=== PATIENT | female | born 1990 | race Caucasian/White ===

== ENCOUNTER 2016-06-06 22:40 | Inpatient (IN) ==
[2016-06-06 23:19] LABS: Bilirubin,Urine Negative (Negative); Blood,Urine Small (Negative); Clarity,Urine Turbid (Clear); Color,Urine Yellow (Yellow); Glucose,Urine (UA) >=1000 mg/dL (Normal); Ketones,Urine 80 mg/dL (Negative); Leukocyte Esterase,Urine Moderate (Negative); Nitrite,Urine Positive (Negative); Protein,Urine 30 mg/dL (Neg-Trace); Urobilinogen,Urine Normal (Normal)
[2016-06-06 23:20] LABS: Bacteria,Urine Many per hpf (None-Few); Hyaline Casts,Urine None Seen per lpf (None-Few); Squamous Epithelial Cell,Urine Many per lpf (None-Few); WBC,Urine TNTC per hpf (0-3)
[2016-06-06] MEDS ORDERED: 0.9 % Sodium Chloride 1,000 ML IVC ONE (23:57)
[2016-06-06] MEDS ORDERED: Ondansetron 4 MG/2 ML VIAL IVP ONE (23:57)
[2016-06-06] MEDS ORDERED: Ketorolac 30 MG/ML VIAL IVP ONE (23:57)
[2016-06-07 00:25] LABS: Basophils % 0.2 %; Hemoglobin 12.1 g/dL (11.5-15.4); Immature Granulocytes % 0.3 % (0-4); Lymphocytes # 0.5 K/mcL (0.6-4.6); Lymphocytes % 3.1 %; Mean Corpuscular HGB Conc 32.7 g/dL (31.6-35.5); Mean Corpuscular Hemoglobin 30.3 pg (28.0-33.3); Mean Corpuscular Volume 92.7 fL (83.0-100.0); Mean Platelet Volume 11.1 fL (9.4-12.4); Monocytes % 5.9 %; Neutrophils # 14.8 K/mcL (1.6-8.9); Platelet Count 215 K/mcL (140-400); Red Blood Count 3.99 M/mcL (3.82-4.97); Red Cell Distribution Width 12.5 % (11.5-14.5); Segmented Neutrophils % 90.5 %
[2016-06-07 00:26] LABS: VBG PH 7.35 pH Units (7.32-7.42)
[2016-06-07 00:38] LABS: BUN/Creatinine Ratio 12 (6-26); Blood Urea Nitrogen 15 mg/dL (7-20); Calcium 9.5 mg/dL (8.6-10.8); Carbon Dioxide 19 mEq/L (19-29); Chloride 100 mEq/L (98-109); Glucose 485 mg/dL (70-99); Osmolality,Calculated 304 (280-300); Potassium 4.4 mEq/L (3.5-4.5); Sodium 136 mEq/L (136-145); eGFR For African Americans > 60 (> 60); eGFR For Non-African Americans 51 (> 60)
--- NOTE | 2016-06-07 00:40 | Emergency Department Note ---
Disposition Clinical Impression: Pyelonephritis, Hyperglycemia Disposition: Admitted As Inpatient Condition: Good Referrals: NO,PCP [Non-Partnered Physician] - Forms: ED Satisfaction Letter, Work/School Release Time of Disposition: 01:49 Abdominal Pain HPI - General Chief Complaint: ED Abdominal Pain Stated Complaint: abdominal/back/flank pain/ N/V Time Seen by Provider: 06/07/16 00:14 Source: patient Limitations: no limitations Nursing Notes Reviewed: Yes Vital Signs Reviewed: Yes - History of Present Illness HPI Narrative: 25 year old female who is a DM1 and HX of pyelonephritis and has been admitted for it due to sepsis. Delilah states that today she has been experiencing increased left sided flank pain that radiates in the groin and that she had a fever at home of 100.2F, today she has a temp of 100.9F. Delilah states tthat she has been experincing nausea and vomitting and a suppressed appetite. Patient has also been experiencin urinary symptoms that started today. Delilah staes that she has also been admitted for DKA in the past but it has been over 7 years. Delilah states this feels like her pyelonephritis from the past. Nothing makes it better or worse. Delilah is tachycardic in the room and has a positive UA from triage. Denies chest pain, shortnsss of breath, or headache, neck pain, or cough. Flank pain is described as dull ache with radiation. Pain Scale: 8 - Related Data Home Medications Medication Instructions Recorded Confirmed Humalog 04/11/15 Klonopin 04/11/15 Sertraline 04/11/15 Previous Rx's Medication Instructions Recorded Amoxicillin 875 mg PO BID #20 tablet 04/11/15 Benzonatate [Tessalon] 200 mg PO TID PRN #30 capsule 04/11/15 DiphenhydraMINE [Benadryl] 25 mg PO Q6HR PRN #20 capsule 04/11/15 GuaiFENesin ER [Mucinex] 1,200 mg PO BID #20 tbbp.12hr 04/11/15 Ciprofloxacin [Cipro] 500 mg PO BID #20 tablet 04/13/16 Ondansetron HCl [Zofran] 4 mg PO Q8HR PRN #15 tablet 04/13/16 Allergies Allergy/AdvReac Type Severity Reaction Status Date / Time No Known Allergies Allergy Verified 06/06/16 22:57 Constitutional: Reports: fever, chills, weakness. Denies: weight change Eyes: Denies: eye pain, eye discharge, vision change ENT ED: Denies: ear pain, throat pain, dental pain, hearing loss, epistaxis, congestion, dysphagia Cardiovascular: Denies: chest pain, palpitations, dyspnea on exertion, edema, syncope Respiratory: Denies: cough, dyspnea, wheezes, hemoptysis, stridor Gastrointestinal: Reports: abdominal pain, nausea, vomiting. Denies: diarrhea, constipation, hematemesis, melena, hematochezia Genitourinary: Reports: urgency, dysuria, frequency, hematuria. Denies: discharge Musculoskeletal: Reports: back pain. Denies: neck pain, arthralgia, myalgia Integumentary: Denies: rash, abrasion, lesions Neurological: Denies: headache, weakness, numbness, paresthesias, confusion, abnormal gait, vertigo Psychiatric: Denies: anxiety, depression, suicidal thoughts, homicidal thoughts , auditory hallucinations, visual hallucinations Endocrine: Denies: fatigue Hematological/Lymphatic: Denies: easy bleeding, easy bruising Allergic/Immunologic: Denies: facial swelling, urticaria Abdominal Pain PMH - Past Medical History Medical history: Reports: asthma, diabetes, other Female Surgical History: Reports: other Psychiatric history: Reports: anxiety, depression, PTSD - Social History Smoking status: Never smoker Alcohol use: Reports: none Drug use: Reports: none Physical Exam - General Limitations: no limitations General appearance: alert - Head Head exam: atraumatic, normocephalic, normal inspection - Eye Eye exam: Present: normal appearance, PERRL, EOMI - Expanded Eye Exam Pupils: Left: reactive - ENT ENT exam: normal exam, normal oropharynx, mucous membranes moist - Expanded ENT Exam External ear exam: Present: normal external inspection Mouth exam: Present: normal external inspection Teeth exam: Present: normal inspection Throat exam: Present: normal inspection - Neck Neck exam: Present: normal inspection, full ROM, trachea midline - Chest Chest inspection: Present: normal inspection, symmetric chest wall rise - Respiratory Respiratory exam: Present: normal lung sounds bilaterally - Cardiovascular Cardiovascular exam: Present: normal rhythm, tachycardia, normal heart sounds - Abdominal Exam Abdominal exam: Present: soft, Non-Tender. Absent: tenderness, distention, guarding, rebound, rigidity - Extremities Exam Extremities exam: Present: normal inspection, full ROM. Absent: tenderness, pedal edema - Expanded Upper Extremity Exam Shoulder exam: Present: normal inspection, full ROM Arm exam: Present: normal inspection, full ROM Elbow exam: Present: normal inspection, full ROM Forearm/Wrist exam: Present: normal inspection, full ROM Hand exam: Present: normal inspection, full ROM Vascular exam: Normal: capillary refill, radial pulse - Expanded Lower Extremity Exam Hip/Pelvis exam: Present: normal inspection, full ROM Upper leg exam: Present: normal inspection, full ROM Knee exam: Present: normal inspection, full ROM Lower leg exam: Present: normal inspection, full ROM Ankle exam: Present: normal inspection, full ROM Foot/toe exam: Present: normal inspection, full ROM Neurovascular/Tendon exam: Absent: motor deficit, sensory deficit, tendon deficit - Back Exam Back exam: Present: normal inspection, full ROM. Absent: tenderness - Neurological Exam Neurological exam: Present: alert, oriented X3 - Expanded Neurological Exam Patient oriented to: Present: person, place, time Coma Scale Eye Opening: Spontaneous Coma Scale Motor Response: Obeys Commands Coma Scale Verbal Response: Oriented Coma Scale Total: 15 - Psychiatric Psychiatric exam: Present: normal affect, normal mood - Skin Skin exam: Present: warm, dry, intact, normal color Course Course Narrative: patinet likely had pyelonephritis and we will stat Rocephin now with IVF. lab work and assess for DKA. - Consultations Consultation #1: discussed case with Dr. Reynolds and he accepts patient to his service. Delilah and family are agreeable to plan. Time: 01:48 Vital Signs Temperature 98.8 F 06/06/16 22:57 Pulse Rate 123 06/06/16 22:57 Respiratory Rate 20 06/06/16 22:57 Blood Pressure 108/70 06/06/16 22:57 O2 Sat by Pulse Oximetry 98 06/06/16 22:57 Temperature 98.3 F 06/07/16 01:08 Pulse Rate 112 06/07/16 01:05 Respiratory Rate 20 06/07/16 01:05 Blood Pressure 112/54 06/07/16 01:05 O2 Sat by Pulse Oximetry 98 06/07/16 01:05 Oxygen Delivery Oxygen Delivery Room Air Abdominal Pain - Lab Data Result diagrams: 06/07/16 00:17 06/07/16 00:17 Lab Results 06/06/16 06/06/16 06/07/16 Range/Units 23:06 23:06 00:17 WBC 16.4 H (4.3-11.1) K/mcL RBC 3.99 (3.82-4.97) M/mcL Hgb 12.1 (11.5-15.4) g/dL Hct 37.0 (35.3-44.9) % MCV 92.7 (83.0-100.0) fL MCH 30.3 (28.0-33.3) pg MCHC 32.7 (31.6-35.5) g/dL RDW 12.5 (11.5-14.5) % Plt Count 215 (140-400) K/mcL MPV 11.1 (9.4-12.4) fL Immature Gran % 0.3 (0-4) % Seg Neutrophils % 90.5 % Lymphocytes % 3.1 % Monocytes % 5.9 % Eosinophils % 0.0 % Basophils % 0.2 % Neutrophils # 14.8 H (1.6-8.9) K/mcL Lymphocytes # 0.5 L (0.6-4.6) K/mcL Monocytes # 1.0 (0.0-1.3) K/mcL Eosinophils # 0.0 (0.0-0.6) K/mcL Basophils # 0.0 (0.0-0.2) K/mcL VBG pH (7.32-7.42) pH Units VBG pCO2 (41-51) mmHg VBG pO2 (25-40) mmHg VBG HCO3 (21-27) mEq/L Sodium (136-145) mEq/L Potassium (3.5-4.5) mEq/L Chloride (98-109) mEq/L Carbon Dioxide (19-29) mEq/L BUN (7-20) mg/dL Creatinine (0.57-1.11) mg/dL Est GFR ( Amer) (> 60) Est GFR (Non-Af Amer) (> 60) BUN/Creatinine Ratio (6-26) Glucose (70-99) mg/dL Calculated Osmolality (280-300) Calcium (8.6-10.8) mg/dL Beta-Hydroxybutyric Acd (0.02-0.27) mmol/L Urine Color Yellow (Yellow) Urine Clarity Turbid A (Clear) Urine pH 6.0 (5.0-8.0) pH Units Ur Specific [place] 1.030 H (1.010-1.025) Urine Protein 30 H (Neg-Trace) mg/dL Urine Glucose (UA) >=1000 H (Normal) mg/dL Urine Ketones 80 H (Negative) mg/dL Urine Blood Small H (Negative) Urine Nitrite Positive A (Negative) Urine Bilirubin Negative (Negative) Urine Urobilinogen Normal (Normal) mg/dL Ur Leukocyte Esterase Moderate H (Negative) Urine Microscopic RBC 5-15 H (0-3) per hpf Urine Microscopic WBC TNTC H (0-3) per hpf Ur Squamous Epith Cells Many H (None-Few) per lpf Urine Bacteria Many H (None-Few) per hpf Hyaline Casts None Seen (None-Few) per lpf Ur Culture Indicated? YES A (NO) Urine Test Negative (Negative) 06/07/16 06/07/16 06/07/16 Range/Units 00:17 00:17 00:17 WBC (4.3-11.1) K/mcL RBC (3.82-4.97) M/mcL Hgb (11.5-15.4) g/dL Hct (35.3-44.9) % MCV (83.0-100.0) fL MCH (28.0-33.3) pg MCHC (31.6-35.5) g/dL RDW (11.5-14.5) % Plt Count (140-400) K/mcL MPV (9.4-12.4) fL Immature Gran % (0-4) % Seg Neutrophils % % Lymphocytes % % Monocytes % % Eosinophils % % Basophils % % Neutrophils # (1.6-8.9) K/mcL Lymphocytes # (0.6-4.6) K/mcL Monocytes # (0.0-1.3) K/mcL Eosinophils # (0.0-0.6) K/mcL Basophils # (0.0-0.2) K/mcL VBG pH 7.35 (7.32-7.42) pH Units VBG pCO2 38 L (41-51) mmHg VBG pO2 39 (25-40) mmHg VBG HCO3 21.0 (21-27) mEq/L Sodium 136 (136-145) mEq/L Potassium 4.4 (3.5-4.5) mEq/L Chloride 100 (98-109) mEq/L Carbon Dioxide 19 (19-29) mEq/L BUN 15 (7-20) mg/dL Creatinine 1.27 H (0.57-1.11) mg/dL Est GFR ( Amer) > 60 (> 60) Est GFR (Non-Af Amer) 51 L (> 60) BUN/Creatinine Ratio 12 (6-26) Glucose 485 H (70-99) mg/dL Calculated Osmolality 304 H (280-300) Calcium 9.5 (8.6-10.8) mg/dL Beta-Hydroxybutyric Acd > 2.00 H (0.02-0.27) mmol/L Urine Color (Yellow) Urine Clarity (Clear) Urine pH (5.0-8.0) pH Units Ur Specific [place] (1.010-1.025) Urine Protein (Neg-Trace) mg/dL Urine Glucose (UA) (Normal) mg/dL Urine Ketones (Negative) mg/dL Urine Blood (Negative) Urine Nitrite (Negative) Urine Bilirubin (Negative) Urine Urobilinogen (Normal) mg/dL Ur Leukocyte Esterase (Negative) Urine Microscopic RBC (0-3) per hpf Urine Microscopic WBC (0-3) per hpf Ur Squamous Epith Cells (None-Few) per lpf Urine Bacteria (None-Few) per hpf Hyaline Casts (None-Few) per lpf Ur Culture Indicated? (NO) Urine Test (Negative) Attestation Statement - Attestation Attestation: I personally interviewed and examined this patient and my medical decision- making was reviewed with the ED Resident Physician, Dr. Barnes. I agree with the documented findings, disposition and treatment plan as described except to the extent set forth below. This 25-year-old female who presents to emergency department with urinary symptoms, intractable nausea vomiting, elevated blood sugar with history diabetes mellitus gradually over the last 2 days. Patient's vital signs are stable, and mental status is appropriate. Agree with findings on physical exam. Labs show an elevated white count and urinalysis consistent with UTI, most likely acute pyelonephritis. Patient does have hyperglycemia at 485 but CO2 at this time is normal. Her beta hydroxybutyrate is elevated at this time. We will continue to watch sugars closely and continue IV fluids. Patient will be admitted for acute pyelonephritis with intractable nausea vomiting as well as hyperglycemia with a history of diabetes. Patient remains hemodynamically stable at this time, she is not having any vomiting while in the ED following Zofran administration. He is resting comfortably and having ice chips at bedside.
[2016-06-07] MEDS ORDERED: 0.9 % Sodium Chloride 1,000 ML IVC ONE (01:10)
[2016-06-07] MEDS ORDERED: 0.9 % Sodium Chloride 1,000 ML ONE (01:11)
[2016-06-07] MEDS ORDERED: *HR* Promethazine 25 MG/ML VIAL IVP PRN (05:31)
[2016-06-07] MEDS ORDERED: Naloxone 0.4 MG/ML INJ IVP PRN (05:31)
[2016-06-07] MEDS ORDERED: D5% in Water 1,000 ML IVC PRN (05:31)
[2016-06-07] MEDS ORDERED: *HR* HYDROmorphone (PF) 1 MG/ML SYRINGE IVP PRN (05:31)
[2016-06-07] MEDS ORDERED: *HR* Dextrose 50 % in Water (Syg) 50 ML SYRINGE IVP PRN (05:31)
[2016-06-07] MEDS ORDERED: Dextrose Gel 15 GM PO PRN ×2 (05:31)
[2016-06-07] MEDS ORDERED: traZODone 50 MG TABLET PO PRN (05:31)
--- NOTE | 2016-06-07 05:44 | Internal Med History&Physical ---
Date of Encounter: 06/07/16 Time of Encounter: 05:00 Assessment and Plan (1) Acute abdominal pain Status: Acute . (2) Sepsis Status: Acute . Qualifiers: Sepsis type: sepsis due to unspecified organism Qualified Code(s): A41.9 - Sepsis, unspecified organism (3) UTI (urinary tract infection) Status: Acute . Qualifiers: Urinary tract infection type: acute cystitis Hematuria presence: with hematuria Qualified Code(s): N30.01 - Acute cystitis with hematuria Internal Medicine - H&P: HPI Chief complaint: Back pain. Abdominal pain nausea vomiting. Admitted From: Emergency Dept Plans for Post Hospital Care: Home History of present illness: Ms. Quintana is a 25 year old female history significant for type I dm, thyroiditis/nontoxic goiter, PTSD/depression-anxiety, asthma/RAD, vit D def, DUB , coxa plana/hip, nonsmoker, etc.. The patient was admitted to [facility] via the emergency department when she presented with reports of abdominal/back pain with nausea and vomiting. She acknowledges increased left-sided flank pain radiating into the groin. This has been associated with a fever of 100.2 - 100.9 degrees Fahrenheit. She has been experiencing nausea and vomiting and depressed appetite. Dysuria has been experienced. She relates that current symptoms are reminiscent of her previous episode of pyelonephritis that led to inpatient admission. She acknowledges chills and weakness. Urgency with dysuria and frequency. Subjective hematuria noted. Abdominal pain with nausea vomiting. No episodes of diarrhea or bleeding. Vital signs noted. Pulse rates of 112-123. Remainder was stable. WBC 16.4 hemoglobin 12.1 platelets 214 ,000. Differential showed an increase in neutrophils. Urinalysis was turbid and concentrated. Large protein with large glucose. Large ketones and small blood. Positive nitrite. Moderate leukocyte esterase. 15 RBC. WBC were too numerous to count. Many epithelial cells. Many bacteria. test was negative. Beta hydroxybutyric acid greater than 2. Embolic panel normal except glucose of 485 osmolality 304. Creatinine 1.27. Venous blood gas pH 7.35. PCO2 38. PO2 39. Bicarbonate 21. Preliminary impressions suggest acute , protracted gastroenteritis with intractable nausea vomiting and pain. This is noted to be in association with acute urinary tract infection. Findings were systemic inflammatory response syndrome/sepsis criteria present at admission. Hyper glycemic hyperosmolar state is present with suggestion of evolving, pre DKA. The patient is a risk for acute clinical decline and morbidity. Workup and treatment will proceed comprehensively. The patient was visited and interviewed and examined. Cumulative laboratory and radiographic data base will be considered and discussed. Pertinent ancillary medical records including ECW and PCI documentation when available was reviewed and considered. Given the patient's presenting concerns, past medical history, clinical findings and symptoms, she is admitted at this time will undergo further evaluation and disposition. Orders were written as per the computerized physician order administrator system.......................................................................... .................... Consultative opinions will be sought as clinical circumstances justify. Pain management needs will be addressed. Laboratory+radiographic data base will be updated as appropriate. Studies include: Cultures of blood urine, UA, UDS, U-HCG, pt/inr, ddimer, aptt, amylSE, LIPASE, cardiac injury panel, BNP, metabolic and hematologic panel, magnesium, phosphorus, ionized calcium, thyroid panel, lipid profile, A1c, C-peptide, CRP, sedimentation rate, blood gas, lactic acid, serologies, etc. Precautions: Aspiration, fall, delirium protocol/surveillance initiated. Telemetry with continuous hemodynamic monitoring and pulse oximetry initiated. Empiric antibiotic coverage: Intravenous Rocephin pending culture data. Special studies: CT chest/abd/pelvis, chest x-ray, telemetry, EKG. Pulmonary toilet: Incentive spirometry. PRN:aerosol bronchodilator, mucolytic, antitussive, supplemental oxygen. Corticosteroid therapyPRN. CPAP/BiPAP supplemental oxygen delivery PRN. Aerosol Mucomyst therapy PRN. Fluid and electrolyte repletion efforts will proceed. Careful attention to fluid balance and renal recovery will be emphasized. Avoidance of nephrotoxic exposure and adverse drug drug interaction in the setting of impaired renal function will be monitored closely. Acute coronary syndrome protocol/surveillance initiated. DVT and PUD prophylaxis initiated: PPI therapy, intermittent pneumatic cuffs. Subcutaneous heparin/Lovenox. Early ambulation will be encouraged. Immunization updates recommended. Influenza and pneumococcal vaccinations as part of ongoing preventative healthcare recommendations strongly recommended. Smoking cessation counseling briefly addressed. Patient is a nonsmoker. Advanced care directive discussion briefly addressed. Patient does not declare any healthcare restrictions at this time. Cardiovascular risk appraisal and cardiovascular risk reduction efforts will be emphasized. Physical+occupational therapy consulted to evaluate patient's function capacity and progressive mobility if her circumstances justify. Sliding scale insulin/basal coverage, ADA dietary restraint and schedule an as- needed basis fingerstick glucose assessments were initiated. Nutrition/ diabetes education counseling may be considered as circumstances justify. Outpatient medication schedules will be reviewed confirmed, and facilitated as appropriate. Reconciliation of home treatments including adjustments, substitutions and reintroduction into the treatment regimen will address necessary maintenance therapies for chronic pre-existing medical conditions. Plan of care has been reviewed and discussed in detail with the patient. Questions addressed. Hospital course dictated by clinical findings, treatment response and potential consultative interventions. Patient is at risk for further acute clinical decline due to her presenting chief complaints and comorbid conditions. Condition is serious. Prognosis is guarded. CODE STATUS is full. Past Med Surg Social Fam HX - Past Medical History Source: old records reviewed Medical history: arthritis, asthma, diabetes, osteoporosis (vit D def.), other Psychiatric history: anxiety, depression, PTSD - Past Surgical History Surgical History: other - Social History Smoking Status: Never smoker Smokeless Tobacco Status: No Alcohol use: none Drug use: none Occupational status: employed Current living situation: Home, With Family Activity Level: Independent ambulation, Mostly sedentary Recent Out of Country Travel Within the Last 8 Weeks: No Exposure or Possible Exposure to Illness During Travel: No - Family History Mother Name: PELON ELIZABETH Family Member Ethnicity: Non- Living Status: Still Living Hx Family Endocrine Disorder: Yes (THYROID DISEASE) Internal Medicine - H&P: Meds ClonazePAM [Klonopin] 0.5 mg PO BID PRN 04/11/15 [History] Insulin LISPRO [Humalog] 0 unit SQ DAILY MDD VIA INSUIN PUMP 04/11/15 [History] Vit Calc,Iron,Folic [ Vitamins] 1 tab PO DAILY 06/07/16 [ History] Cefdinir [Omnicef] 300 mg PO BID #14 capsule 06/10/16 [Rx] Allergies No Known Allergies Allergy (Verified 06/06/16 22:57) All Systems PM: A 10-system review of systems was performed and is negative for pertinent findings except as documented above in the HPI. - Constitutional Constitutional: as per HPI, anorexia, malaise, other, no chills, no fever(s), no night sweats - EENT Eyes: as per HPI, no change in vision, no discharge, no pain, no photophobia Ears: as per HPI, no ear discharge, no ear pain, no tinnitus Nose, mouth and throat: as per HPI, no dysphagia, no nasal discharge, no neck pain, no sore throat - Cardiovascular Cardiovascular ROS IM: as per HPI, no chest pain, no diaphoresis, no dyspnea, no lightheadedness, no palpitations, no syncope - Respiratory Respiratory: as per HPI, no cough, no dyspnea, no wheezing, no excessive phlegm production - Gastrointestinal Gastrointestinal: as per HPI, abdominal pain, bloating, cramping, early satiety , nausea, vomiting, other, no diarrhea, no hematemesis, no hematochezia, no melena - Genitourinary Genitourinary: as per HPI, difficulty urinating, difficulty voiding, dysuria, flank pain, urinary frequency, urinary hesitancy, urinary incontinence, urinary urgency, no change in urinary stream, no hematuria - Musculoskeletal Musculoskeletal ROS IM: as per HPI, no numbness, no tingling - Integumentary Integumentary IM: as per HPI, no rash, no unusual bruising - Neurological Neurological ROS: as per HPI - Psychiatric Psychiatric: as per HPI - Endocrine Endocrine IM: as per HPI - Hematologic/Lymphatic Hematologic/Lymphatic: as per HPI, no easy bruising - Allergic/Immunologic Allergic/Immunologic: as per HPI - Constitutional Vitals: Temp Pulse Resp BP Pulse Ox 97.7 F 101 17 99/64 99 06/07/16 03:25 06/07/16 03:25 06/07/16 03:25 06/07/16 03:25 06/07/16 03:25 Vital Signs Temp Pulse Resp BP Pulse Ox 06/07/16 03:25 97.7 F 101 17 99/64 99 06/07/16 03:06 16 100/61 06/07/16 01:08 98.3 F 06/07/16 01:05 112 20 112/54 98 06/07/16 00:23 112 18 113/60 100 06/06/16 23:51 100.2 F H 119 18 120/62 94 06/06/16 22:57 98.8 F 123 20 108/70 98 Intake and Output 06/06/16 06/06/16 06/07/16 15:59 23:59 07:59 Intake Total 2099 Balance 2099 Intake: IV Fluids 2099 0.9 % Sodium Chloride 1, 2000 / 2000 000 ML @ 3750 mls/hr IVC .Q16M ONE Rx#:[id number] Rocephin 1,000 MG In 100 / 100 Dextrose 5% (Minibag+) 100 ML 100 ML @ 200 mls/ hr IVPB ONCE ONE Rx#: [id number] Other: # Voids 1 Weight 81.647 kg 81.221 kg Blood Glucose* 399 Patient Weight 06/07/16 23:59 Weight 81.221 kg General appearance: Present: mild distress, A&O X 3, answers questions appropriately - Head Head exam: Present: atraumatic, normocephalic - Eye Eye exam: Present: EOMI, PERRL, conjuntiva pink, sclera anicteric Pupils: Present: normal accommodation, PERRL - ENT ENT exam: Present: mucous membranes moist, normal oropharynx - Neck Neck exam general surgery: Present: full ROM, supple, trachea midline. Absent: lymphadenopathy - Respiratory Respiratory exam: Present: decreased breath sounds, CTAB. Absent: accessory muscle use, prolonged expiratory phase, rales, rhonchi, wheezes - Cardiovascular Cardiovascular exam: Present: distant heart sounds, RRR, +S1, +S2, tachycardia. Absent: diastolic murmur, gallop, rubs, systolic murmur - GI/Abdominal GI/Abdominal exam: Present: diminished bowel sounds, distended, soft, tenderness , no peritoneal signs - Extremities Exam Extremities exam: Present: full ROM, warm, radial pulses palpable and symetrical. Absent: calf tenderness, cyanotic, pedal edema - Neurological Exam Neurological exam: Present: alert, CN II-XII intact, oriented X3, no focal deficits. Absent: pronater drift, facial droop, speech deficit - Psychiatric Psychiatric exam: Present: normal affect, normal mood - Skin Skin exam: Present: dry, intact, warm Internal Med - H&P Results - Labs CBC & Chem 7: 06/10/16 03:06 04/28/17 13:35 Labs: Short CBC 06/07/16 Range/Units 00:17 WBC 16.4 H (4.3-11.1) K/mcL Hgb 12.1 (11.5-15.4) g/dL Hct 37.0 (35.3-44.9) % Plt Count 215 (140-400) K/mcL Neutrophils # 14.8 H (1.6-8.9) K/mcL BMP 06/07/16 Range/Units 00:17 Sodium 136 (136-145) mEq/L Potassium 4.4 (3.5-4.5) mEq/L Chloride 100 (98-109) mEq/L Carbon Dioxide 19 (19-29) mEq/L BUN 15 (7-20) mg/dL Creatinine 1.27 H (0.57-1.11) mg/dL Glucose 485 H (70-99) mg/dL Calcium 9.5 (8.6-10.8) mg/dL Urine 06/06/16 Range/Units 23:06 Urine Color Yellow (Yellow) Urine Clarity Turbid A (Clear) Urine pH 6.0 (5.0-8.0) pH Units Ur Specific Cres[place] 1.030 H (1.010-1.025) Urine Protein 30 H (Neg-Trace) mg/dL Urine Glucose (UA) >=1000 H (Normal) mg/dL Abnormal lab results WBC 16.4 K/mcL (4.3-11.1) H 06/07/16 00:17 Neutrophils # 14.8 K/mcL (1.6-8.9) H 06/07/16 00:17 Lymphocytes # 0.5 K/mcL (0.6-4.6) L 06/07/16 00:17 VBG pCO2 38 mmHg (41-51) L 06/07/16 00:17 Creatinine 1.27 mg/dL (0.57-1.11) H 06/07/16 00:17 Est GFR (Non-Af Amer) 51 (> 60) L 06/07/16 00:17 Glucose 485 mg/dL (70-99) H 06/07/16 00:17 POC Glucose 437 (58-89) H* 06/07/16 02:55 Calculated Osmolality 304 (280-300) H 06/07/16 00:17 Beta-Hydroxybutyric Acd > 2.00 mmol/L (0.02-0.27) H 06/07/16 00:17 Urine Clarity Turbid (Clear) A 06/06/16 23:06 Ur Specific [place] 1.030 (1.010-1.025) H 06/06/16 23:06 Urine Protein 30 mg/dL (Neg-Trace) H 06/06/16 23:06 Urine Glucose (UA) >=1000 mg/dL (Normal) H 06/06/16 23:06 Urine Ketones 80 mg/dL (Negative) H 06/06/16 23:06 Urine Blood Small (Negative) H 06/06/16 23:06 Urine Nitrite Positive (Negative) A 06/06/16 23: Ur Leukocyte Esterase Moderate (Negative) H 06/06/16 23:06 Urine Microscopic RBC 5-15 per hpf (0-3) H 06/06/16 23:06 Urine Microscopic WBC TNTC per hpf (0-3) H 06/06/16 23:06 Ur Squamous Epith Cells Many per lpf (None-Few) H 06/06/16 23:06 Urine Bacteria Many per hpf (None-Few) H 06/06/16 23:06 Ur Culture Indicated? YES (NO) A 06/06/16 23:06 Laboratory Results WBC 16.4 K/mcL (4.3-11.1) H 06/07/16 00:17 RBC 3.99 M/mcL (3.82-4.97) 06/07/16 00:17 Hgb 12.1 g/dL (11.5-15.4) 06/07/16 00:17 Hct 37.0 % (35.3-44.9) 06/07/16 00:17 MCV 92.7 fL (83.0-100.0) 06/07/16 00:17 MCH 30.3 pg (28.0-33.3) 06/07/16 00:17 MCHC 32.7 g/dL (31.6-35.5) 06/07/16 00:17 RDW 12.5 % (11.5-14.5) 06/07/16 00:17 Plt Count 215 K/mcL (140-400) 06/07/16 00:17 MPV 11.1 fL (9.4-12.4) 06/07/16 00:17 Immature Gran % 0.3 % (0-4) 06/07/16 00:17 Seg Neutrophils % 90.5 % 06/07/16 00:17 Lymphocytes % 3.1 % 06/07/16 00:17 Monocytes % 5.9 % 06/07/16 00:17 Eosinophils % 0.0 % 06/07/16 00: Basophils % 0.2 % 06/07/16 00:17 Neutrophils # 14.8 K/mcL (1.6-8.9) H 06/07/16 00:17 Lymphocytes # 0.5 K/mcL (0.6-4.6) L 06/07/16 00:17 Monocytes # 1.0 K/mcL (0.0-1.3) 06/07/16 00:17 Eosinophils # 0.0 K/mcL (0.0-0.6) 06/07/16 00:17 Basophils # 0.0 K/mcL (0.0-0.2) 06/07/16 00:17 VBG pH 7.35 pH Units (7.32-7.42) 06/07/16 00: VBG pCO2 38 mmHg (41-51) L 06/07/16 00:17 VBG pO2 39 mmHg (25-40) 06/07/16 00:17 VBG HCO3 21.0 mEq/L (21-27) 06/07/16 00:17 Sodium 136 mEq/L (136-145) 06/07/16 00:17 Potassium 4.4 mEq/L (3.5-4.5) 06/07/16 00:17 Chloride 100 mEq/L (98-109) 06/07/16 00:17 Carbon Dioxide 19 mEq/L (19-29) 06/07/16 00:17 BUN 15 mg/dL (7-20) 06/07/16 00:17 Creatinine 1.27 mg/dL (0.57-1.11) H 06/07/16 00:17 Est GFR ( Amer) > 60 (> 60) 06/07/16 00:17 Est GFR (Non-Af Amer) 51 (> 60) L 06/07/16 00:17 BUN/Creatinine Ratio 12 (6-26) 06/07/16 00:17 Glucose 485 mg/dL (70-99) H 06/07/16 00:17 POC Glucose 437 (58-89) H* 06/07/16 02:55 Calculated Osmolality 304 (280-300) H 06/07/16 00:17 Lactic Acid 1.1 mmol/L (0.5-2.2) 06/07/16 02:49 Calcium 9.5 mg/dL (8.6-10.8) 06/07/16 00:17 Beta-Hydroxybutyric Acd > 2.00 mmol/L (0.02-0.27) H 06/07/16 00:17 Urine Color Yellow (Yellow) 06/06/16 23:06 Urine Clarity Turbid (Clear) A 06/06/16 23: Urine pH 6.0 pH Units (5.0-8.0) 06/06/16 23: Ur Specific [place] 1.030 (1.010-1.025) H 06/06/16 23: Urine Protein 30 mg/dL (Neg-Trace) H 06/06/16 23:06 Urine Glucose (UA) >=1000 mg/dL (Normal) H 06/06/16 23:06 Urine Ketones 80 mg/dL (Negative) H 06/06/16 23:06 Urine Blood Small (Negative) H 06/06/16 23:06 Urine Nitrite Positive (Negative) A 06/06/16 23: Urine Bilirubin Negative (Negative) 06/06/16 23: Urine Urobilinogen Normal mg/dL (Normal) 06/06/16 23:06 Ur Leukocyte Esterase Moderate (Negative) H 06/06/16 23:06 Urine Microscopic RBC 5-15 per hpf (0-3) H 06/06/16 23:06 Urine Microscopic WBC TNTC per hpf (0-3) H 06/06/16 23:06 Ur Squamous Epith Cells Many per lpf (None-Few) H 06/06/16 23:06 Urine Bacteria Many per hpf (None-Few) H 06/06/16 23:06 Hyaline Casts None Seen per lpf (None-Few) 06/06/16 23:06 Ur Culture Indicated? YES (NO) A 06/06/16 23:06 Urine Test Negative (Negative) 06/06/16 23:06
[2016-06-07 06:12] LABS: Beta-Hydroxybutyric Acid > 2.00 mmol/L (0.02-0.27)
[2016-06-07] MEDS: Ringers Solution, Lactated 1,000 ML IVC SCH ×2 (06:23→15:45)
[2016-06-07] MEDS: *HR* OxyCODONE Immed Rel 5 MG TABLET PO PRN ×2 (06:24→21:52)
[2016-06-07] MEDS: Acetaminophen 325 MG TABLET PO PRN (06:24)
[2016-06-07] MEDS: Pantoprazole 40 MG VIAL IVP SCH ×2 (06:24→19:00)
[2016-06-07 06:39] LABS: Thyroid Stimulating Hormone 1.286 mcIU/mL (0.350-4.840)
[2016-06-07 06:52] LABS: Hemoglobin A1C 7.7 %
[2016-06-07 06:58] LABS: Amylase 21 Units/L (25-125); Chol/HDL Ratio 2.1 (0-4.9); Cholesterol 92 mg/dL (< 200); HDL Cholesterol 44 mg/dL (40-59); LDL Cholesterol,Calculated 34 mg/dL (0-99); Lipase 4 Units/L (8-78); Magnesium 1.6 mg/dL (1.6-2.6); Triglycerides 69 mg/dL (< 150)
[2016-06-07] MEDS ORDERED: Insulin LISPRO 300 UNITS/3 ML VIAL SQ SCH ×3 (07:30→21:00)
[2016-06-07] MEDS: Insulin LISPRO 300 UNITS/3 ML VIAL SQ SCH ×3 (08:37→16:40)
[2016-06-07] MEDS: clonazePAM 0.5 MG TABLET PO SCH ×2 (08:38→20:53)
[2016-06-07 08:56] LABS: C-Reactive Protein 193 mg/L (Less than 5)
--- NOTE | 2016-06-07 11:26 | Internal Med Progress Note ---
<Dennis Singh - Last Filed: 06/07/16 15:28> Date of Encounter: 06/07/16 Time of Encounter: 09:00 - Assessment and plan (1) Sepsis Current Visit: Yes Status: Acute Assessment and plan: A 25 year old female admitted with urinary tract infection found to be tachycardic with presenting heart rate of 123, current blood pressure 94/58, currently afebrile, WBC is 16.4, neutrophil count 14.8 presenting lactic acid 1.1, repeat lactic acid 1.4. - Patient found to have urinary tract infection. - Currently in DKA. Plan: - Continue fluid rehydration - Ceftriaxone 1 g every 12 hours- patient improving appropriate for UTI. - Blood cultures were drawn in the emergency room with results pending. Qualifiers: Sepsis type: sepsis due to unspecified organism Qualified Code(s): A41.9 - Sepsis, unspecified organism (2) UTI (urinary tract infection) Current Visit: Yes Status: Acute Assessment and plan: Patient presents with low back pain Urinary Tract Infection in the Setting of Hyperglycemia and Diabetic Ketoacidosis. Patient has had frequent urinary tract infections with roughly 5-6 in the last year. She has had pyelonephritis multiple times in the past. Plan: - Continue Rocephin 1 g every 12 hours - Monitor renal function - Continue IV rehydration. Qualifiers: Urinary tract infection type: site unspecified Hematuria presence: with hematuria Qualified Code(s): N39.0 - Urinary tract infection, site not specified; R31.9 - Hematuria, unspecified (3) Diabetic ketoacidosis associated with type 1 diabetes mellitus Current Visit: Yes Status: Acute Assessment and plan: Patient presented with back pain, polyuria, thought of urinary tract infection and glucose of 435, anion gap of 17, beta hydroxybutyrate greater than 2.0, urinalysis demonstrates positive for UTI plus greater than 1000 glucose and high for ketones.. - Patient originally started on insulin to Levemir for coverage Plan: - Continue rehydration for sepsis protocol - Recheck glucose and CBC and BMP as patient may need to be started on insulin drip for diabetic ketoacidosis. - We will continue to monitor electrolytes. Qualifiers: Qualified Code(s): E10.10 - Type 1 diabetes mellitus with ketoacidosis without coma (4) Diabetes type I Current Visit: Yes Status: Acute Assessment and plan: Patient is a 25-year-old female with type 1 diabetes diagnosed at the age of 10. She states her average glucoses run around 200. She follows up with endocrinology at [facility] and usually uses an insulin pump. Her last insulin pump ran out's yesterday evening prior to leaving on a road trip from [place] back to [place]. She has had difficulty controlling her glucoses in the past. - A1c 7.7 - Currently diabetic ketoacidosis in a type I diabetic. Plan: - Treat diabetic ketoacidosis - Plan to switch to inpatient insulin coverage - Patient will need close follow-up with endocrinology post discharge. Qualifiers: Qualified Code(s): E10.9 - Type 1 diabetes mellitus without complications - Subjective Interval history: Ms. Quintana 25-year-old female seen and evaluated patient bedside this morning. She is alert awake oriented in no acute distress. She feels that her pain is much improved after starting antibiotics and fluids. She denied any pain with urination but did have polyuria. She denies any current nausea vomiting diarrhea constipation or any other acute symptoms. She is resting comfortably and has no further concerns. She discussed her diabetic history which demonstrates uncontrolled diabetes requiring endocrinology involvement. - Constitutional Vitals: Temp Pulse Resp BP Pulse Ox 99.3 F 108 16 94/58 96 06/07/16 06:45 06/07/16 06:45 06/07/16 06:45 06/07/16 06:45 06/07/16 06:45 General appearance: Present: mild distress, A&O X 3, answers questions appropriately - Head Head exam: Present: atraumatic, normocephalic - Eye Eye exam: Present: PERRL, conjuntiva pink, sclera anicteric Pupils: Present: PERRL - ENT ENT exam: Present: mucous membranes moist - Neck Neck exam general surgery: Present: supple, trachea midline. Absent: lymphadenopathy - Respiratory Respiratory exam: Present: CTAB. Absent: accessory muscle use, rales, rhonchi, wheezes - Cardiovascular Cardiovascular exam: Present: RRR, +S1, +S2. Absent: diastolic murmur, gallop, rubs, systolic murmur - GI/Abdominal GI/Abdominal exam: Present: normal bowel sounds, soft, no peritoneal signs. Absent: distended, tenderness - Extremities Exam Extremities exam: Present: warm, radial pulses palpable and symetrical. Absent : calf tenderness, cyanotic, pedal edema - Neurological Exam Neurological exam: Present: CN II-XII intact, oriented X3, no focal deficits. Absent: pronater drift, facial droop, speech deficit - Psychiatric Psychiatric exam: Present: normal affect, normal mood - Skin Skin exam: Present: dry, intact Internal Medicine: Result - Labs CBC & Chem 7: 06/07/16 13:08 06/07/16 13:08 Consult Discharge Plan - Plan Referrals: Fadumo Booker MD [Primary Care Provider] - <TeressaKarloJarrett - Last Filed: 06/07/16 19:10> Date of Encounter: 06/07/16 - Constitutional Vitals: Temp Pulse Resp BP Pulse Ox 98.2 F 110 16 85/49 97 06/07/16 16:26 06/07/16 16:26 06/07/16 16:26 06/07/16 16:26 06/07/16 16:26 Internal Medicine: Result - Labs CBC & Chem 7: 06/07/16 13:08 06/07/16 13:08 Labs: Short CBC 06/07/16 Range/Units 13:08 WBC 14.8 H (4.3-11.1) K/mcL Hgb 11.0 L (11.5-15.4) g/dL Hct 33.3 L (35.3-44.9) % Plt Count 204 (140-400) K/mcL Neutrophils # 12.9 H (1.6-8.9) K/mcL BMP 06/07/16 13:08 Sodium 137 Potassium 4.1 Chloride 110 H Carbon Dioxide 18 L BUN 17 Creatinine 1.17 H Glucose 236 H Calcium 8.8 - Attending Attestation I examined this patient and my medical decision-making was reviewed with the Resident Physician, Dr. Singh. I agree with the documented findings, disposition and treatment plan as described except to the extent set forth below. On exam she is in no acute distress awake alert oriented. Heart is tachycardic S1-S2 with no murmurs, lungs are clear, abdomen is soft. exam reveals left costophrenic angle tenderness to percussion. this afternoon blood cultures were reported as positive for gram-negative rods. She has severe sepsis with hypotension with blood pressure of 85 systolic. She remains tachycardic. She has received treatment with IV ceftriaxone which should cover for Escherichia coli. Her clinical condition remains critical because of severe sepsis, uncontrolled diabetes and earlier DKA which at this point has improved. Her condition remains unstable and there is high probability of emergent and significant clinical decompensation with potential impairment of organ function including cardiovascular system and immunological system. I have performed 45 minutes of critical care time which involved decision making of high complexity to assess, manipulate, and support vital organ system, in order to prevent further life threatening deterioration of the patient's condition. The time involved in the performance of any procedures was not counted toward critical care time. Critical care time was spent evaluating the patient, reviewing EKG, telemetry tracing, imaging studies and laboratory data, ordering medications and laboratory studies and reevaluating for clinical response.
[2016-06-07 13:49] LABS: VBG HCO3 18.5 mEq/L (21-27); VBG PH 7.33 pH Units (7.32-7.42)
[2016-06-07 13:51] LABS: Basophils % 0.1 %; Hematocrit 33.3 % (35.3-44.9); Immature Granulocytes % 0.6 % (0-4); Lymphocytes % 6.5 %; Mean Corpuscular Hemoglobin 30.9 pg (28.0-33.3); Mean Corpuscular Volume 93.5 fL (83.0-100.0); Mean Platelet Volume 11.6 fL (9.4-12.4); Monocytes # 0.9 K/mcL (0.0-1.3); Neutrophils # 12.9 K/mcL (1.6-8.9); Platelet Count 204 K/mcL (140-400); Red Blood Count 3.56 M/mcL (3.82-4.97); Red Cell Distribution Width 12.4 % (11.5-14.5); Segmented Neutrophils % 86.8 %
[2016-06-07 14:01] LABS: BUN/Creatinine Ratio 15 (6-26); Blood Urea Nitrogen 17 mg/dL (7-20); Calcium 8.8 mg/dL (8.6-10.8); Carbon Dioxide 18 mEq/L (19-29); Chloride 110 mEq/L (98-109); Glucose 236 mg/dL (70-99); Osmolality,Calculated 293 (280-300); Potassium 4.1 mEq/L (3.5-4.5); Sodium 137 mEq/L (136-145); eGFR For African Americans > 60 (> 60); eGFR For Non-African Americans 56 (> 60)
[2016-06-07 14:38] LABS: Platelet Estimate Normal (Normal)
[2016-06-07] MEDS: Ketorolac 30 MG/ML VIAL IVP PRN (15:45)
[2016-06-07] MEDS ORDERED: Promethazine 12.5 MG in 0.9 % Sodium Chloride 50 ML IVPB PRN (15:51)
[2016-06-07 18:11] LABS: Acinetobacter baumannii by PCR Not Detected (Not Detect); Enterococcus by PCR Not Detected (Not Detect); Staphylococcus aureus by PCR Not Detected (Not Detect); Streptococcus agalactiae(B)PCR Not Detected (Not Detect); Streptococcus by PCR Not Detected (Not Detect); Streptococcus pneumoniae PCR Not Detected (Not Detect); Streptococcus pyogenes (A) PCR Not Detected (Not Detect); blaKPC Carbapenem-Resist Gene Not Detected (Not Detect); mecA Methicillin-Resist Gene Not Detected (Not Detect); vanA/B Vancomycin-Resist Genes Not Detected (Not Detect)
[2016-06-07 18:12] LABS: Candida albicans by PCR Not Detected (Not Detect); Candida glabrata by PCR Not Detected (Not Detect); Candida krusei by PCR Not Detected (Not Detect); Candida parapsilosis by PCR Not Detected (Not Detect); Candida tropicalis by PCR Not Detected (Not Detect); Escherichia coli by PCR ***DETECTED*** (Not Detect); Klebsiella oxytoca by PCR Not Detected (Not Detect); Klebsiella pneumoniae by PCR Not Detected (Not Detect); Pseudomonas aeruginosa by PCR Not Detected (Not Detect); Serratia marcescens by PCR Not Detected (Not Detect)
[2016-06-07] MEDS ORDERED: Insulin DETEMIR 100 UNIT/ML X5UNITS SQ SCH (21:00)
[2016-06-07] MEDS: Melatonin 3 MG TABLET PO SCH (21:01)
[2016-06-07] MEDS: 0.9 % Sodium Chloride 1,000 ML IVC SCH ×2 (21:11→23:31)
[2016-06-08] MEDS ORDERED: 0.9 % Sodium Chloride 1,000 ML IVC ONE (00:16)
[2016-06-08] MEDS ORDERED: Levofloxacin 750 MG/150 ML 750 MG/150 ML BAG IVPB STA (00:19)
[2016-06-08] MEDS: Ringers Solution, Lactated 1,000 ML IVC SCH ×4 (01:01→21:51)
[2016-06-08 01:03] LABS: Basophils % 0.3 %; Eosinophils % 0.3 %; Hematocrit 28.8 % (35.3-44.9); Immature Granulocytes % 0.4 % (0-4); Lymphocytes # 1.4 K/mcL (0.6-4.6); Lymphocytes % 12.4 %; Mean Corpuscular HGB Conc 32.3 g/dL (31.6-35.5); Mean Corpuscular Hemoglobin 30.4 pg (28.0-33.3); Mean Corpuscular Volume 94.1 fL (83.0-100.0); Mean Platelet Volume 10.7 fL (9.4-12.4); Monocytes # 0.9 K/mcL (0.0-1.3); Monocytes % 8.1 %; Neutrophils # 9.1 K/mcL (1.6-8.9); Platelet Count 164 K/mcL (140-400); Red Blood Count 3.06 M/mcL (3.82-4.97); Red Cell Distribution Width 12.5 % (11.5-14.5); Segmented Neutrophils % 78.5 %
[2016-06-08 01:04] LABS: Hemoglobin 9.3 g/dL (11.5-15.4)
[2016-06-08] MEDS: 0.9 % Sodium Chloride 1,000 ML IVC SCH ×4 (01:10→22:30)
[2016-06-08 01:16] LABS: Alanine Aminotransferase 9 Units/L (0-55); Albumin 2.5 g/dL (3.5-5.0); Albumin/Globulin Ratio 0.9 (1.1-2.2); Alkaline Phosphatase 47 Units/L (38-126); Aspartate Amino Transferase 9 Units/L (5-34); BUN/Creatinine Ratio 16 (6-26); Bilirubin,Direct 0.2 mg/dL (0.0-0.5); Bilirubin,Indirect 0.3 mg/dL (0.0-1.2); Bilirubin,Total 0.5 mg/dL (0.2-1.2); Blood Urea Nitrogen 16 mg/dL (7-20); Calcium 7.6 mg/dL (8.6-10.8); Carbon Dioxide 19 mEq/L (19-29); Chloride 111 mEq/L (98-109); Globulin 2.8 g/dL (2.4-3.5); Glucose 292 mg/dL (70-99); Magnesium 1.6 mg/dL (1.6-2.6); Osmolality,Calculated 294 (280-300); Potassium 4.2 mEq/L (3.5-4.5); Sodium 136 mEq/L (136-145); Total Protein 5.3 g/dL (6.0-8.3); eGFR For African Americans > 60 (> 60); eGFR For Non-African Americans > 60 (> 60)
[2016-06-08 01:17] LABS: Phosphorous 1.6 mg/dL (2.3-4.7)
[2016-06-08] MEDS: Ketorolac 30 MG/ML VIAL IVP PRN ×2 (02:41→20:35)
[2016-06-08] MEDS ORDERED: Calcium Gluconate 1,000 MG in D5% in Water 100 ML IVPB ONE (04:24)
[2016-06-08] MEDS ORDERED: Magnesium Sulfate 1 GM in D5% in Water 100 ML IVPB ONE (04:24)
[2016-06-08] MEDS ORDERED: Sodium Phosphate 30 MMOL in D5% in Water 100 ML IVPB ONE (04:24)
[2016-06-08] MEDS: Pantoprazole 40 MG VIAL IVP SCH ×2 (05:46→16:55)
[2016-06-08] MEDS: clonazePAM 0.5 MG TABLET PO SCH ×2 (07:45→20:27)
[2016-06-08] MEDS: Insulin LISPRO 300 UNITS/3 ML VIAL SQ SCH ×5 (07:46→16:48)
[2016-06-08] MEDS: *HR* OxyCODONE Immed Rel 5 MG TABLET PO PRN ×2 (08:09→16:48)
[2016-06-08] MEDS ORDERED: Insulin DETEMIR 100 UNIT/ML X5UNITS SQ ONE (10:43)
[2016-06-08] MEDS: Acetaminophen 325 MG TABLET PO PRN (11:40)
[2016-06-08] MEDS ORDERED: Levofloxacin 750 MG/150 ML 750 MG/150 ML BAG IVPB SCH (12:00)
--- NOTE | 2016-06-08 14:01 | Internal Med Progress Note ---
<Dennis Singh - Last Filed: 06/08/16 14:56> Date of Encounter: 06/08/16 Time of Encounter: 09:00 - Assessment and plan (1) Sepsis Current Visit: Yes Status: Acute Assessment and plan: A 25 year old female admitted with urinary tract infection found to be tachycardic with presenting heart rate of 123, blood pressure 94/58, afebrile, WBC is 16.4, neutrophil count 14.8 presenting lactic acid 1.1, repeat lactic acid 1.4. - Patient found to have urinary tract infection. - DKA resolved. - Found to have gram negative bacteremia with final cultures and sensitivity pending Plan: - Continue fluid rehydration - Ceftriaxone 1 g every 12 hours- patient improving appropriate for UTI. - Will likely need 10 days IV antibiotics outpatient. Qualifiers: Sepsis type: sepsis due to unspecified organism Qualified Code(s): A41.9 - Sepsis, unspecified organism (2) UTI (urinary tract infection) Current Visit: Yes Status: Acute Assessment and plan: Patient presented with low back pain Urinary Tract Infection in the Setting of Hyperglycemia and Diabetic Ketoacidosis. Patient has had frequent urinary tract infections with roughly 5-6 in the last year. She has had pyelonephritis multiple times in the past. -Urinary symptoms have resolved. Plan: - Continue Rocephin 1 g every 12 hours - Monitor renal function - Continue IV rehydration. Qualifiers: Urinary tract infection type: site unspecified Hematuria presence: with hematuria Qualified Code(s): N39.0 - Urinary tract infection, site not specified; R31.9 - Hematuria, unspecified (3) Diabetic ketoacidosis associated with type 1 diabetes mellitus Current Visit: Yes Status: Acute Assessment and plan: Patient presented with back pain, polyuria, thought of urinary tract infection and glucose of 435, anion gap of 17, beta hydroxybutyrate greater than 2.0, urinalysis demonstrates positive for UTI plus greater than 1000 glucose and high for ketones.. - Patient originally started on insulin to Levemir for coverage 06/08/2016: Anion gap closed. hyperglycemia improving. Insulin increased. Plan: - Increased Levemir to 20units BID, Regular 8units TIDWM, high dose correcting scale. - AM labs. - We will continue to monitor electrolytes. Qualifiers: Qualified Code(s): E10.10 - Type 1 diabetes mellitus with ketoacidosis without coma (4) Diabetes type I Current Visit: Yes Status: Acute Assessment and plan: Patient is a 25-year-old female with type 1 diabetes diagnosed at the age of 10. She states her average glucoses run around 200. She follows up with endocrinology at [facility] and usually uses an insulin pump. Her last insulin pump ran out's yesterday evening prior to leaving on a road trip from [place] back to [place]. She has had difficulty controlling her glucoses in the past. - A1c 7.7 Plan: - Treat hyperglycemia - Continue current DM type 1 insulin coverage - Patient will need close follow-up with endocrinology post discharge. Qualifiers: Diabetes mellitus complication status: with hyperglycemia Qualified Code(s) : E10.65 - Type 1 diabetes mellitus with hyperglycemia (5) Bacteremia due to Escherichia coli Current Visit: Yes Status: Acute Assessment and plan: Patient presented septic. Found to have E.coli bacteremia and is already covered with Rocephin for UTI. - + bc x2 Plan: - Rocephin for total of 14days - repeat blood cultures. - Subjective Interval history: Ms. Quintana 25-year-old female seen and evaluated patient bedside this morning. She is alert awake oriented in no acute distress. She denies any discomforts this morning. She has no further concerns. She says she has difficulty at home controlling her glucose levels without the use of her pump and requires a large amount of insulin. Previously needing 20 -40 units Lantus. - Constitutional Vitals: Temp Pulse Resp BP Pulse Ox 98.5 F 107 16 106/69 96 06/08/16 11:38 06/08/16 11:38 06/08/16 11:38 06/08/16 11:38 06/08/16 11:38 General appearance: Present: mild distress, A&O X 3, answers questions appropriately - Head Head exam: Present: atraumatic, normocephalic - Eye Eye exam: Present: PERRL, conjuntiva pink, sclera anicteric Pupils: Present: PERRL - ENT ENT exam: Present: mucous membranes moist - Neck Neck exam general surgery: Present: supple, trachea midline. Absent: lymphadenopathy - Respiratory Respiratory exam: Present: CTAB. Absent: accessory muscle use, rales, rhonchi, wheezes - Cardiovascular Cardiovascular exam: Present: RRR, +S1, +S2. Absent: diastolic murmur, gallop, rubs, systolic murmur - GI/Abdominal GI/Abdominal exam: Present: normal bowel sounds, soft, no peritoneal signs. Absent: distended, tenderness - Extremities Exam Extremities exam: Present: warm, radial pulses palpable and symetrical. Absent : calf tenderness, cyanotic, pedal edema - Neurological Exam Neurological exam: Present: alert, oriented X3, no focal deficits. Absent: pronater drift, facial droop, speech deficit - Psychiatric Psychiatric exam: Present: normal affect, normal mood Internal Medicine: Result - Labs CBC & Chem 7: 06/08/16 00:55 06/08/16 00:55 Labs: Short CBC 06/07/16 06/08/16 Range/Units 13:08 00:55 WBC 14.8 H 11.6 H (4.3-11.1) K/mcL Hgb 11.0 L 9.3 L D (11.5-15.4) g/dL Hct 33.3 L 28.8 L (35.3-44.9) % Plt Count 204 164 (140-400) K/mcL Neutrophils # 12.9 H 9.1 H (1.6-8.9) K/mcL BMP 06/07/16 06/08/16 13:08 00:55 Sodium 137 136 Potassium 4.1 4.2 Chloride 110 H 111 H Carbon Dioxide 18 L 19 BUN 17 16 Creatinine 1.17 H 1.02 Glucose 236 H 292 H Calcium 8.8 7.6 L Liver Function 06/08/16 Range/Units 00:55 Total Bilirubin 0.5 (0.2-1.2) mg/dL Direct Bilirubin 0.2 (0.0-0.5) mg/dL AST 9 (5-34) Units/L ALT 9 (0-55) Units/L Alkaline Phosphatase 47 (38-126) Units/L Albumin 2.5 L (3.5-5.0) g/dL - Impressions Impressions Retroperitoneum Ultrasound 06/07/16 22:00 IMPRESSION: Unremarkable ultrasound of the kidneys and urinary bladder. D/ / Maximiliano Ma MD / Maximiliano Ma MD Interpreting Provider: Maximiliano Ma MD Consult Discharge Plan - Plan Referrals: Fadumo Booker MD [Primary Care Provider] - <Jarrett Gannon - Last Filed: 06/08/16 18:34> Date of Encounter: 06/08/16 - Constitutional Vitals: Temp Pulse Resp BP Pulse Ox 97.8 F 114 18 99/63 96 06/08/16 16:41 06/08/16 16:41 06/08/16 16:41 06/08/16 16:41 06/08/16 16:41 Internal Medicine: Result - Labs CBC & Chem 7: 06/08/16 00:55 06/08/16 00:55 Labs: Short CBC 06/08/16 Range/Units 00:55 WBC 11.6 H (4.3-11.1) K/mcL Hgb 9.3 L D (11.5-15.4) g/dL Hct 28.8 L (35.3-44.9) % Plt Count 164 (140-400) K/mcL Neutrophils # 9.1 H (1.6-8.9) K/mcL BMP 06/08/16 00:55 Sodium 136 Potassium 4.2 Chloride 111 H Carbon Dioxide 19 BUN 16 Creatinine 1.02 Glucose 292 H Calcium 7.6 L Liver Function 06/08/16 Range/Units 00:55 Total Bilirubin 0.5 (0.2-1.2) mg/dL Direct Bilirubin 0.2 (0.0-0.5) mg/dL AST 9 (5-34) Units/L ALT 9 (0-55) Units/L Alkaline Phosphatase 47 (38-126) Units/L Albumin 2.5 L (3.5-5.0) g/dL - Impressions Impressions Retroperitoneum Ultrasound 06/07/16 22:00 IMPRESSION: Unremarkable ultrasound of the kidneys and urinary bladder. D/ / Maximiliano Ma MD / Maximiliano Ma MD Interpreting Provider: Maximiliano Ma MD - Attending Attestation I examined this patient and my medical decision-making was reviewed with the Resident Physician, Dr Dennis Singh. I agree with the documented findings, disposition and treatment plan as described except to the extent set forth below. She is in no acute distress awake alert oriented heart is tachycardic regular S1 -S2 with no murmurs. Lungs are clear. Abdomen is soft. Extremities with trace lower extremity pitting edema. We will continue needed treatment with ceftriaxone and Levaquin. Follow-up final blood culture. Plan for a total of 10-14 days of IV antibiotics. Consult urology for evaluation due to recurrent UTI and sepsis. Consult infectious diseases due to severe sepsis, recurrent UTIs, bacteremia. We will obtain echocardiogram with bacteremia and tachycardia.
--- NOTE | 2016-06-08 14:26 | Infectious Disease Consult ---
Date of Encounter: 06/08/16 Time of Encounter: 14:22 Assessment and Plan (1) Sepsis Status: Acute Assessment and plan: The patient had two SIRS criteria on admission. Likely secondary to bacteremia and UTI/pyelonephritis. Improved. WBC trending down. She continues to have tachycardia. She has been afebrile. Blood cultures obtained 06/07/16 at 0030 are positive 1/2 sets for E. coli per PCR. Repeat blood cultures drawn 06/07/16 at 1999 are pending. Qualifiers: Sepsis type: sepsis due to unspecified organism Qualified Code(s): A41.9 - Sepsis, unspecified organism (2) Bacteremia due to Escherichia coli Status: Acute Assessment and plan: Causative organism E. coli. Source likely UTI/pyelonephritis. Blood cultures drawn 06/07/16 at 0030 are positive 1/2 sets for E. coli. Repeat blood cultures drawn 06/07/16 at 1999 are pending x 2 sets. Continue Rocephin, but change dose to 2 grams IV daily. Discontinue Levaquin. Await repeat cultures. Duration of treatment depends on the clinical picture, but likely 14 days from the first set of negative blood cultures. Will likely be able to switch to PO when ready for discharge. (3) UTI (urinary tract infection) Status: Acute Assessment and plan: Causative organism unknown, but likely E. coli given the patient's blood culture results. The patient reports multiple urinary tract infections in the past. Etiology of recurrence unknown, but likely related to the patient's diabetes --> vesicouretheral reflux secondary to cystopathy, nephropathy, hyperglycemia, etc. Treated with 10 day course of PO Cipro back in April for UTI - symptoms resolved. RP ultrasound negative. Continue Rocephin, but change dose to 2 grams IV daily. Discontinue Levaquin. No indication to use dual therapy in this case. Duration of treatment depends on the clinical picture, but likely 10-14 days. Qualifiers: Urinary tract infection type: site unspecified Hematuria presence: with hematuria Qualified Code(s): N39.0 - Urinary tract infection, site not specified; R31.9 - Hematuria, unspecified (4) Pyelonephritis Status: Acute Assessment and plan: RP UTS completed and negative for findings to indicate pyelonephritis, but given the patient's clinical exam, high index of suspicion remains. Continue antibiotics as above. (5) Hyperglycemia Status: Acute Assessment and plan: Likely multifactorial --> patient had run out of insulin on her way back from [place] + sepsis. Recommend aggressive glucose monitoring and control. Management per the primary team. (6) Diabetes type I Status: Acute Assessment and plan: Diagnosed at the age 10. Follow[address] with [address] Jones with [facility]. Hgb A1C 7.7. Management per the primary team. Qualifiers: Diabetes mellitus complication status: with hyperglycemia Qualified Code(s) : E10.65 - Type 1 diabetes mellitus with hyperglycemia Infectious Disease HPI - Data of Consult Patient: new to practice Consult date: 06/08/16 Requesting Physician: Jarrett Gannon MD Primary Care Provider: Fadumo Asencio[facility] - Consult Narrative Reason for consult: UTI with bacteremia History of present illness: Ms. Quintana is a 25 year old female is type 1 diabetes, thyroiditis, recurrent urinary tract infection, dysfunctional uterine bleeding, and vitamin D deficiency. The patient was admitted to the hospital June 07 for pyelonephritis and hyperglycemia. We are consulted June 08 for further evaluation and treatment recommendations regarding UTI and bacteremia. Patient's a 25 her old female past medical history as stated above. The patient states that she began to experience severe flank pain with nausea and vomiting late Sunday night into Sunday morning. She presented to the emergency department. Upon arrival, she was afebrile and tachycardic, but was otherwise hemodynamically stable. She reported a fever of 100.9 prior to arrival. Laboratory studies revealed a leukocytosis with neutrophilic predominance and hyperglycemia. Urinalysis obtained in the ER was positive for pyuria. Urine culture was sent that shows gram-negative rods. Blood cultures were obtained as well that are +1 out of 2 sets for Escherichia coli. Retroperitoneal ultrasound has been ordered and was negative. Patient was started on empiric Rocephin and was admitted to the hospital for further evaluation and treatment. Since admission, the patient states she feels a little bit better. She did have some transient hypotension that resolved with IV fluid administration. The patient continues to have tachycardia. Levaquin was added to the patient's antibiotic regimen by the primary team. Most recent set of labs revealed a white blood cell count that is improved at 11.6. Her hypotension has resolved. We've been asked to evaluate and make further recommendations. During my exam today, the patient endorses a history as stated above. She states that late Sunday night and early Sunday morning she had sudden onset of bilateral lower back pain, worse on the left than the right. She denies any earaches nares symptoms such as dysuria, hematuria, or urinary frequency. She reports that the pain radiated around into her flank and lateral abdomen. She reported nausea with vomiting. She denies any chest pain, shortness of breath, or cough. She denies any congestion, earache, or sore throat. She denies pain elsewhere at this time. She does state that she feels better, but is still having some left flank pain. She continues to deny urinary complaints at this time. The patient does report that she was seen in our emergency department back in early April for symptoms consistent with a urinary tract infection. She was put on oral Cipro for 10 days and states her symptoms did resolve. Review of the medical record reveals that the urine culture was positive for staph saprophyticus. CC: Jarrett Gannon MD Past Med Surg Social Fam HX - Past Medical History Attestation: Yes The following information was validated with the patient. Source: patient, old records reviewed, nursing notes reviewed Medical history: arthritis, asthma, diabetes (Type I, uses insulin pump), osteoporosis (vit D def.) Psychiatric history: anxiety, depression, PTSD - Past Surgical History Surgical History: sinus surgery - Social History Smoking Status: Never smoker Smokeless Tobacco Status: No Alcohol use: none Drug use: none Occupational status: employed (Registered Nurse) Current living situation: Home - Independent Activity Level: Independent ambulation Recent Out of Country Travel Within the Last 8 Weeks: No Exposure or Possible Exposure to Illness During Travel: No - Family History Mother Name: PELON ELIZABETH Family Member Ethnicity: Non- Living Status: Still Living Hx Family Endocrine Disorder: Yes (THYROID DISEASE) Infectious Disease-CN:Meds ClonazePAM [Klonopin] 0.5 mg PO BID PRN 04/11/15 [History] Insulin LISPRO [Humalog] 0 unit SQ DAILY MDD VIA INSUIN PUMP 04/11/15 [History] Vit Calc,Iron,Folic [ Vitamins] 1 tab PO DAILY 06/07/16 [ History] Allergies No Known Allergies Allergy (Verified 06/06/16 22:57) All systems: reviewed and no additional remarkable complaints except as stated Exam - Constitutional Vitals: Temp Pulse Resp BP Pulse Ox 98.5 F 107 16 106/69 96 06/08/16 11:38 06/08/16 11:38 06/08/16 11:38 06/08/16 11:38 06/08/16 11:38 General appearance: average body habitus, cooperative, no acute distress - Head Head exam: Present: atraumatic, normal inspection, normocephalic - Eye Eye exam: Present: EOMI, normal appearance, PERRL Pupils: Present: normal accommodation - ENT ENT exam: Present: mucous membranes moist - Neck Neck exam: Present: normal inspection - Respiratory Respiratory exam: Present: CTAB. Absent: rales, respiratory distress, rhonchi, wheezes - Cardiovascular Cardiovascular exam: Present: RRR, +S1, +S2 - GI/Abdominal GI/Abdominal exam: Present: normal bowel sounds, soft. Absent: distended, tenderness - Extremities Exam Extremities exam: Present: normal inspection. Absent: joint swelling, pedal edema, tenderness - Back Exam Back exam: Present: CVA tenderness (L), normal inspection. Absent: CVA tenderness (R) - Neurological Exam Neurological exam: Present: alert, oriented X3, no focal deficits - Psychiatric Psychiatric exam: Present: normal affect, normal mood - Skin Skin exam: Present: dry, intact, normal color, warm Infectious Disease CN: Results - Labs CBC & Chem 7: 06/08/16 00:55 06/08/16 00:55 Cultures: Cultures 06/07/16 00:27 Blood Culture - Preliminary Peripheral Venipuncture No growth. 06/06/16 23:06 Urine Culture - Preliminary Urine,Clean Catch Gram Negative Jamal 06/07/16 00:17 Blood Culture - Preliminary Peripheral Venipuncture Gram Negative Jamal Serology: Serology 06/07/16 06/06/16 06/06/16 Range/Units 00:17 23:06 23:06 Urine Color Yellow (Yellow) Urine Clarity Turbid A (Clear) Urine pH 6.0 (5.0-8.0) pH Units Ur Specific [place] 1.030 H (1.010-1.025) Urine Protein 30 H (Neg-Trace) mg/dL Urine Glucose (UA) >=1000 H (Normal) mg/dL Urine Ketones 80 H (Negative) mg/dL Urine Blood Small H (Negative) Urine Nitrite Positive A (Negative) Urine Bilirubin Negative (Negative) Urine Urobilinogen Normal (Normal) mg/dL Ur Leukocyte Esterase Moderate H (Negative) Urine Microscopic RBC 5-15 H (0-3) per hpf Urine Microscopic WBC TNTC H (0-3) per hpf Ur Squamous Epith Cells Many H (None-Few) per lpf Urine Bacteria Many H (None-Few) per hpf Hyaline Casts None Seen (None-Few) per lpf Ur Culture Indicated? YES A (NO) Urine Test Negative (Negative) A. baumannii (PCR) Not Detected (Not Detect) Sheila albicans (PCR) Not Detected (Not Detect) C. glabrata (PCR) Not Detected (Not Detect) C. krusei (PCR) Not Detected (Not Detect) C. parapsilosis (PCR) Not Detected (Not Detect) C. tropicalis (PCR) Not Detected (Not Detect) Enterobacteriac sp PCR DETECTED A (Not Detect) E. cloacae complex PCR Not Detected (Not Detect) Enterococcus sp PCR Not Detected (Not Detect) E. coli (PCR) DETECTED A (Not Detect) H. influenzae (PCR) Not Detected (Not Detect) Klebsiella oxytoca PCR Not Detected (Not Detect) Klebsiella pneumoniae Not Detected (Not Detect) List. monocytogenes PCR Not Detected (Not Detect) N. meningitidis (PCR) Not Detected (Not Detect) Proteus species (PCR) Not Detected (Not Detect) Serratia marcescens PCR Not Detected (Not Detect) Staphylococcus sp PCR Not Detected (Not Detect) Staph aureus (PCR) Not Detected (Not Detect) mecA-Methicil Res Gene Not Detected (Not Detect) Streptococcus sp PCR Not Detected (Not Detect) Group A Strep DNA Not Detected (Not Detect) Group B Strep (PCR) Not Detected (Not Detect) Strep pneumoniae (PCR) Not Detected (Not Detect) P. aeruginosa (PCR) Not Detected (Not Detect) Geremias/B-Vanco Res Genes Not Detected (Not Detect) KPC (blaKPC) Detect PCR Not Detected (Not Detect) Consult Discharge Plan - Plan Referrals: Fadumo Booker MD [Primary Care Provider] -
--- NOTE | 2016-06-08 17:46 | ECHO - Doppler Report ---
Echocardiogram Name: Destiny Quintana Date of Study: 06/08/2016 Date: 1990 Ht: 66.0 in Medical Record#: [id number] Age: 25 Wt: 179.0 lb Gender: Female BSA: 1.91 Order #: [id number] Location: [facility] Room #: [facility] Reading Physician: Cate German DO Measurement Psychologist: Saloni Tran RDCS Ordering Physician: Jarrett Gannon MD Primary Physician: Fadumo Booker MD Indications: Sepsis, Bacteremia, Tachycardia Impressions: LVEF 65%. Normal left ventricular size and systolic function. Normal right ventricular size and function. No significant valvular dysfunction. No pulmonary hypertension. No valvular vegetations on this study. Left Ventricular Wall Motion: Rest Echo Findings All wall segments showed normal motion. Findings: Study Quality * Technically adequate exam. ECG Findings * Sinus tachycardia. Left Ventricle * LVEF 65%. * Normal LV chamber size, wall thickness and function. * Indeterminate diastolic function. Right Ventricle * Normal right ventricular structure and function. Left Atrium * Normal left atrial size. Mitral Valve * Normal mitral valve structure. * No mitral stenosis. * Trace mitral regurgitation. Aortic Valve * Normal aortic valve structure. * No aortic regurgitation. * No aortic stenosis. * Trileaflet aortic valve. Tricuspid Valve * Tricuspid valve not well visualized. * No tricuspid regurgitation. * Estimated RA pressure is 3 mmHg. * Estimated RVSP is 26 mmHg. * No pulmonary hypertension. Pulmonic Valve * Pulmonic valve is not well visualized. * No pulmonic stenosis. * No pulmonic regurgitation. Pulmonary Artery * Pulmonary artery not well visualized. Right Atrium * Normal right atrial size. Pericardium * There is no pericardial effusion present. Aorta * Normally sized aortic root. IVC * The IVC is not dilated. Interatrial Septum * Interatrial septum not well evaluated. History Diabetes 11/22/2015 a Previous Echo was performed. Measurements: BP: 106/ 69 2D Normal Values RVIDd: 2.65 cm <2.7 cm IVSd: .76 cm 0.6 - 1.0 cm LVIDd: 5.02 cm 3.7 - 5.6 cm LVPWd: .81 cm 0.6 - 1.1 cm LVIDs: 2.90 cm 1.5 - 3.6 cm AO: 2.30 cm < 4.0 cm LA: 1.43 cm 2.0 - 4.0cm LA volume: 36 Mitral Valve Peak E:.94 m/sec Peak E' Lat Jorje:16.6 cm/s Peak E' Med Jorje:11.6 cm/s E/E' Lat Ratio:5.7 E/E' Med Ratio:8.1 Tricuspid Valve TV Regurg Peak Grad: 23.00mmHg TV Regurg Peak Jorje: 2.42m/sec Updated by Cate German on 06/08/2016 5:40:06 PM electronically signed on 06/08/2016 5:40:57 PM with status of Final Wall Motion Pedersen: 1=Normal, 2=Hypokinesis, 3=Akinesis, 4=Dyskinesis, 5=Aneurysmal, 6=Hyperkinetic, X=Not Visualized (Blank)=Missing
--- NOTE | 2016-06-08 18:03 | Urology - Consult Note ---
Date of Encounter: 06/08/16 Time of Encounter: 18:01 - Assessment and Plan (1) History of kidney stones Current Visit: Yes Status: Acute Assessment and plan: I reviewed her renal ultrasound. There is no evidence of hydronephrosis. Recommend obtaining a CT scan without contrast to assess for any kidney stones. (2) Pyelonephritis Current Visit: Yes Status: Acute Assessment and plan: 25-year-old woman with a history of recurrent urinary tract infections. Await her urine culture and continue on IV antibiotics for now. We discussed proper voiding habits and conservative measures to try to limit her risk for infection. We will discuss possible use of prophylaxis as an outpatient. She should follow up me in 1-2 weeks upon discharge. Urology CN:HPI Consult date: 06/08/16 Reason for consult Urology: Other (Recurrent uti) Requesting physician: Jarrett Gannon History of present illness: 25-year-old woman presents with concern for fevers and flank pain. A urinalysis was positive and she had a elevated white blood cell count. She was admitted for IV antibiotics for suspected pyelonephritis. Blood cultures have grown out gram-negative rods. Her urine culture is growing out gram-negative rods as well. She has a history of recurrent urinary tract infections. She says she had these even as a child. She reports a history of nephrolithiasis. She denies any urinary issues. She has a good flow and empties well. Currently, she denies any dysuria. Past Med Surg Social Fam HX - Past Medical History Medical history: arthritis, asthma, diabetes (Type I, uses insulin pump), osteoporosis (vit D def.) Psychiatric history: anxiety, depression, PTSD - Past Surgical History Surgical History: sinus surgery - Social History Smoking Status: Never smoker Smokeless Tobacco Status: No Alcohol use: none Drug use: none - Family History Mother Name: PELON ELIZABETH Family Member Ethnicity: Non- Living Status: Still Living Hx Family Endocrine Disorder: Yes (THYROID DISEASE) Medications and Allergies ClonazePAM [Klonopin] 0.5 mg PO BID PRN 04/11/15 [History] Insulin LISPRO [Humalog] 0 unit SQ DAILY MDD VIA INSUIN PUMP 04/11/15 [History] Vit Calc,Iron,Folic [ Vitamins] 1 tab PO DAILY 06/07/16 [ History] Allergies No Known Allergies Allergy (Verified 06/06/16 22:57) Review of Systems - Constitutional no chills, no fever(s) - EENT Nose, mouth and throat: no dizziness - Cardiovascular no chest pain - Respiratory no dyspnea - Gastrointestinal no nausea, no vomiting - Genitourinary Genitourinary: flank pain, no hematuria - Musculoskeletal no back pain - Integumentary no erythema, no rash - Neurological no weakness - Psychiatric no suicidal ideation - Hematologic/Lymphatic no easy bleeding - Allergic/Immunologic no wheezing Exam Initial Vital Signs Temp Pulse Resp BP Pulse Ox 98.8 F 123 20 108/70 98 06/06/16 22:57 06/06/16 22:57 06/06/16 22:57 06/06/16 22:57 06/06/16 22:57 - General physical appearance Present: well developed, well nourished, no distress - Eyes Absent: icteric - ENT Present: normal nares - Neck Present: trachea midline - Respiratory Present: normal respiratory effort - Cardiovascular Cardiovascular exam IM: RRR - Abdomen Abdomen: Present: soft Urology Results - Labs 06/08/16 00:55 06/08/16 00:55 Abnormal lab results WBC 11.6 K/mcL (4.3-11.1) H 06/08/16 00:55 RBC 3.06 M/mcL (3.82-4.97) L 06/08/16 00:55 Hgb 9.3 g/dL (11.5-15.4) L D 06/08/16 00:55 Hct 28.8 % (35.3-44.9) L 06/08/16 00:55 Neutrophils # 9.1 K/mcL (1.6-8.9) H 06/08/16 00:55 ESR 59 mm/hr (0-15) H 06/07/16 05:53 VBG pCO2 35 mmHg (41-51) L 06/07/16 13:08 VBG pO2 149 mmHg (25-40) H 06/07/16 13:08 VBG HCO3 18.5 mEq/L (21-27) L 06/07/16 13:08 Chloride 111 mEq/L (98-109) H 06/08/16 00:55 Glucose 292 mg/dL (70-99) H 06/08/16 00:55 POC Glucose 115 (58-89) H 06/08/16 16:39 Hemoglobin A1c 7.7 % (-5.6) H 06/07/16 05:53 Calcium 7.6 mg/dL (8.6-10.8) L 06/08/16 00:55 Ionized Calcium 1.07 mmol/L (1.15-1.35) L 06/08/16 00:55 Phosphorus 1.6 mg/dL (2.3-4.7) L D 06/08/16 00:55 C-Reactive Protein 193 mg/L (Less than 5) H 06/07/16 05:53 Serum Total Protein 5.3 g/dL (6.0-8.3) L 06/08/16 00:55 Albumin 2.5 g/dL (3.5-5.0) L 06/08/16 00:55 Albumin/Globulin Ratio 0.9 (1.1-2.2) L 06/08/16 00:55 Amylase 21 Units/L (25-125) L 06/07/16 05:53 Lipase 4 Units/L (8-78) L 06/07/16 05:53 Beta-Hydroxybutyric Acd > 2.00 mmol/L (0.02-0.27) H 06/07/16 05:53 Urine Clarity Turbid (Clear) A 06/06/16 23:06 Ur Specific Dillon 1.030 (1.010-1.025) H 06/06/16 23:06 Urine Protein 30 mg/dL (Neg-Trace) H 06/06/16 23:06 Urine Glucose (UA) >=1000 mg/dL (Normal) H 06/06/16 23:06 Urine Ketones 80 mg/dL (Negative) H 06/06/16 23:06 Urine Blood Small (Negative) H 06/06/16 23:06 Urine Nitrite Positive (Negative) A 06/06/16 23:06 Ur Leukocyte Esterase Moderate (Negative) H 06/06/16 23:06 Urine Microscopic RBC 5-15 per hpf (0-3) H 06/06/16 23:06 Urine Microscopic WBC TNTC per hpf (0-3) H 06/06/16 23:06 Ur Squamous Epith Cells Many per lpf (None-Few) H 06/06/16 23:06 Urine Bacteria Many per hpf (None-Few) H 06/06/16 23:06 Ur Culture Indicated? YES (NO) A 06/06/16 23:06 Enterobacteriac sp PCR DETECTED (Not Detect) A 06/07/16 00:17 E. coli (PCR) DETECTED (Not Detect) A 06/07/16 00:17 Diabetes panel 06/08/16 Range/Units 00:55 Sodium 136 (136-145) mEq/L Potassium 4.2 (3.5-4.5) mEq/L Chloride 111 H (98-109) mEq/L Carbon Dioxide 19 (19-29) mEq/L BUN 16 (7-20) mg/dL Creatinine 1.02 (0.57-1.11) mg/dL Glucose 292 H (70-99) mg/dL Calcium 7.6 L (8.6-10.8) mg/dL AST 9 (5-34) Units/L ALT 9 (0-55) Units/L Alkaline Phosphatase 47 (38-126) Units/L Albumin 2.5 L (3.5-5.0) g/dL Calcium panel 06/08/16 Range/Units 00:55 Calcium 7.6 L (8.6-10.8) mg/dL Phosphorus 1.6 L D (2.3-4.7) mg/dL Albumin 2.5 L (3.5-5.0) g/dL Pituitary panel 06/08/16 Range/Units 00:55 Sodium 136 (136-145) mEq/L Potassium 4.2 (3.5-4.5) mEq/L Chloride 111 H (98-109) mEq/L Carbon Dioxide 19 (19-29) mEq/L BUN 16 (7-20) mg/dL Creatinine 1.02 (0.57-1.11) mg/dL Glucose 292 H (70-99) mg/dL Calcium 7.6 L (8.6-10.8) mg/dL Adrenal panel 06/08/16 Range/Units 00:55 Sodium 136 (136-145) mEq/L Potassium 4.2 (3.5-4.5) mEq/L Chloride 111 H (98-109) mEq/L Carbon Dioxide 19 (19-29) mEq/L BUN 16 (7-20) mg/dL Creatinine 1.02 (0.57-1.11) mg/dL Glucose 292 H (70-99) mg/dL Calcium 7.6 L (8.6-10.8) mg/dL Total Bilirubin 0.5 (0.2-1.2) mg/dL AST 9 (5-34) Units/L ALT 9 (0-55) Units/L Alkaline Phosphatase 47 (38-126) Units/L Albumin 2.5 L (3.5-5.0) g/dL All other labs normal. - Imaging US - abdomen: report reviewed, image reviewed US - pelvic: report reviewed, image reviewed Consult Discharge Plan - Plan Referrals: Fadumo Booker MD [Primary Care Provider] -
[2016-06-08] MEDS: Melatonin 3 MG TABLET PO SCH (20:26)
[2016-06-08] MEDS: Insulin DETEMIR 100 UNIT/ML X5UNITS SQ SCH (20:26)
[2016-06-08] MEDS: Lactobacillus 1 EACH CAP.SPRINK PO SCH (20:28)
[2016-06-08] MEDS ORDERED: Insulin LISPRO 300 UNITS/3 ML VIAL SQ SCH (21:00)
[2016-06-09] MEDS: Pantoprazole 40 MG VIAL IVP SCH ×2 (05:07→18:06)
[2016-06-09] MEDS ORDERED: Furosemide 20 MG/2 ML VIAL IVP STA (05:30)
[2016-06-09 06:12] LABS: Basophils % 0.2 %; Eosinophils % 0.3 %; Hematocrit 28.3 % (35.3-44.9); Hemoglobin 9.2 g/dL (11.5-15.4); Immature Granulocytes % 1.1 % (0-4); Lymphocytes # 0.8 K/mcL (0.6-4.6); Lymphocytes % 12.3 %; Mean Corpuscular HGB Conc 32.5 g/dL (31.6-35.5); Mean Corpuscular Hemoglobin 30.2 pg (28.0-33.3); Mean Corpuscular Volume 92.8 fL (83.0-100.0); Mean Platelet Volume 11.2 fL (9.4-12.4); Monocytes # 0.4 K/mcL (0.0-1.3); Monocytes % 6.8 %; Neutrophils # 5.1 K/mcL (1.6-8.9); Platelet Count 163 K/mcL (140-400); Red Blood Count 3.05 M/mcL (3.82-4.97); Red Cell Distribution Width 12.4 % (11.5-14.5); Segmented Neutrophils % 79.3 %
[2016-06-09 06:34] LABS: % Iron Saturation 6 % (15-50); Alanine Aminotransferase 27 Units/L (0-55); Albumin 2.6 g/dL (3.5-5.0); Albumin/Globulin Ratio 0.9 (1.1-2.2); Alkaline Phosphatase 60 Units/L (38-126); Aspartate Amino Transferase 34 Units/L (5-34); BUN/Creatinine Ratio 9 (6-26); Bilirubin,Total 0.5 mg/dL (0.2-1.2); Blood Urea Nitrogen 8 mg/dL (7-20); Calcium 7.7 mg/dL (8.6-10.8); Carbon Dioxide 16 mEq/L (19-29); Chloride 108 mEq/L (98-109); Glucose 373 mg/dL (70-99); Iron 10 mcg/dL (50-170); Osmolality,Calculated 296 (280-300); Potassium 4.3 mEq/L (3.5-4.5); Sodium 136 mEq/L (136-145); Total Protein 5.6 g/dL (6.0-8.3); Transferrin 125 mg/dL (180-382); eGFR For African Americans > 60 (> 60); eGFR For Non-African Americans > 60 (> 60)
[2016-06-09 07:42] LABS: Triiodothyronine (T3) Free 1.87 pg/mL (1.71-3.71)
--- NOTE | 2016-06-09 07:48 | Event Note ---
Date of Encounter: 06/09/16 Time of Encounter: 07:47 Patient requires inpatient admission she will need to be hospitalized for total 4-5 days due to severe sepsis with gram-negative michael bacteremia caused by UTI in the context of poorly controlled type 1 diabetes and mild DKA. For review of systems, past medical history, past surgical history, family history, and social history please refer to the original H&P dictated on [address]. Baird. I have reviewed this document and found no changes or updates.
[2016-06-09] MEDS: Insulin LISPRO 300 UNITS/3 ML VIAL SQ SCH ×2 (09:44→09:49)
[2016-06-09] MEDS: Lactobacillus 1 EACH CAP.SPRINK PO SCH ×2 (09:44→21:56)
[2016-06-09] MEDS: Insulin DETEMIR 100 UNIT/ML X5UNITS SQ SCH (09:44)
[2016-06-09] MEDS: *HR* OxyCODONE Immed Rel 5 MG TABLET PO PRN (09:49)
[2016-06-09] MEDS: clonazePAM 0.5 MG TABLET PO SCH ×2 (09:49→21:51)
[2016-06-09 10:23] LABS: Microalbum/Creatinine Ratio,Ur 100 (0-30)
[2016-06-09 10:26] LABS: Creatinine,Urine < 5 mg/dL; Microalbumin,Urine < 5 mg/L
--- NOTE | 2016-06-09 11:42 | Infectious Disease Progress No ---
Date of Encounter: 06/09/16 Time of Encounter: 11:40 - Assessment and Plan (1) Sepsis Current Visit: Yes Status: Acute The patient had two SIRS criteria on admission. Likely secondary to bacteremia and UTI/pyelonephritis. Improved. WBC normal. She continues to have tachycardia. She has been afebrile. Blood cultures obtained 06/07/16 at 0030 are positive 1/2 sets for E. coli. Repeat blood cultures drawn 06/07/16 at 1999 are NGTD. Qualifiers: Sepsis type: sepsis due to unspecified organism Qualified Code(s): A41.9 - Sepsis, unspecified organism (2) Bacteremia due to Escherichia coli Current Visit: Yes Status: Acute Causative organism E. coli. Source likely UTI/pyelonephritis. Blood cultures drawn 06/07/16 at 0030 are positive 1/2 sets for E. coli. Repeat blood cultures drawn 06/07/16 at 1999 are NGTD x 2 sets. Continue Rocephin, but change dose to 2 grams IV daily. Await repeat cultures. Duration of treatment depends on the clinical picture, but likely 14 days from the first set of negative blood cultures. Will likely be able to switch to PO when ready for discharge. (3) UTI (urinary tract infection) Current Visit: Yes Status: Acute Causative organism E. coli. The patient reports multiple urinary tract infections in the past. Etiology of recurrence unknown, but likely related to the patient's diabetes --> vesicouretheral reflux secondary to cystopathy, nephropathy, hyperglycemia, etc. Urology consulted. Appreciate their recommendations. Treated with 10 day course of PO Cipro back in April for UTI - symptoms resolved. RP ultrasound negative. CT of the A/P does not show any stones, but it does show findings consistent with bilateral pyelonephritis and cystitis. Continue Rocephin, but change dose to 2 grams IV daily. Continue probiotic BID. Duration of treatment depends on the clinical picture, but likely 10-14 days. Qualifiers: Urinary tract infection type: site unspecified Hematuria presence: with hematuria Qualified Code(s): N39.0 - Urinary tract infection, site not specified; R31.9 - Hematuria, unspecified (4) Pyelonephritis Current Visit: Yes Status: Acute CT of the abdomen and pelvis showed bilateral perinephric stranding consistent with pyelonephritis. Continue antibiotics as above. (5) Thickening of wall of gallbladder Current Visit: Yes Status: Acute Noted on CT of the abdomen and pelvis. Clinically, does not appear to have cholecystitis. Get RUQ UTS to evaluate further. (6) Hyperglycemia Current Visit: Yes Status: Acute Likely multifactorial --> patient had run out of insulin on her way back from [place] + sepsis. Recommend aggressive glucose monitoring and control. Management per the primary team. (7) Diabetes type I Current Visit: Yes Status: Acute Diagnosed at the age 10. Follow[address] with [address] Jones with [facility]. Hgb A1C 7.7. Management per the primary team. Qualifiers: Diabetes mellitus complication status: with hyperglycemia Qualified Code(s) : E10.65 - Type 1 diabetes mellitus with hyperglycemia - Subjective Interval history: Patient seen and examined. No acute events noted overnight. Patient resting quietly in bed. States she feels a little better today, but still has pain in the bilateral lower back, left>right. Denies fevers or chills or rigors. Denies chest pain, but reports some shortness of breath due to feeling "fullness" that has improved since receiving a dose of lasix. Reports mild, dry cough. Denies nausea or vomiting and states she has been able to keep meds and fluids down, but does not have much of an appetite. Denies abdominal pain or urinary complaints. Denies oral thrush or new skin lesions. Infect Dis PN-Objective Data - Labs CBC & Chem 7: 06/09/16 05:48 06/09/16 05:48 Cultures: Cultures 06/07/16 00:17 Blood Culture - Final Peripheral Venipuncture Escherichia coli 06/07/16 19:51 Blood Culture - Preliminary Peripheral Venipuncture No growth. 06/07/16 19:45 Blood Culture - Preliminary Peripheral Venipuncture No growth. 06/06/16 23:06 Urine Culture - Final Urine,Clean Catch Escherichia coli 06/07/16 00:27 Blood Culture - Preliminary Peripheral Venipuncture No growth. Exam - Constitutional Vitals: Temp Pulse Resp BP Pulse Ox 98.9 F 97 16 109/69 98 06/09/16 07:10 06/09/16 07:10 06/09/16 07:10 06/09/16 07:10 06/09/16 07:10 General appearance: average body habitus, cooperative, no acute distress - Head Head exam: Present: atraumatic, normal inspection, normocephalic - Eye Eye exam: Present: EOMI, normal appearance, PERRL Pupils: Present: normal accommodation - ENT ENT exam: Present: mucous membranes moist - Neck Neck exam: Present: normal inspection - Respiratory Respiratory exam: Present: CTAB. Absent: rales, respiratory distress, rhonchi, wheezes - Cardiovascular Cardiovascular exam: Present: RRR, +S1, +S2 - GI/Abdominal GI/Abdominal exam: Present: normal bowel sounds, soft. Absent: distended, tenderness - Extremities Exam Extremities exam: Present: normal inspection. Absent: joint swelling, pedal edema, tenderness - Back Exam Back exam: Present: CVA tenderness (L), CVA tenderness (R) Additional comments: CVA tenderness left worse than right, but improved per patient. - Neurological Exam Neurological exam: Present: alert, oriented X3, no focal deficits - Psychiatric Psychiatric exam: Present: normal affect, normal mood - Skin Skin exam: Present: dry, intact, normal color, warm Consult Discharge Plan - Plan Referrals: Fadumo Booker MD [Primary Care Provider] -
--- NOTE | 2016-06-09 13:01 | Internal Med Progress Note ---
<Dennis Singh - Last Filed: 06/09/16 12:58> Date of Encounter: 06/09/16 Time of Encounter: 12:58 - Assessment and plan (1) Sepsis Current Visit: Yes Status: Acute Assessment and plan: A 25 year old female admitted with urinary tract infection found to be tachycardic with presenting heart rate of 123, blood pressure 94/58, afebrile, WBC is 16.4, neutrophil count 14.8 presenting lactic acid 1.1, repeat lactic acid 1.4. - Patient found to have urinary tract infection. - DKA resolved. - Found to have Escherichia coli bacteremia and Escherichia coli in her urine both sensitive to ceftriaxone and Levaquin. Plan: - Continue fluid rehydration - Ceftriaxone 1 g every 12 hours- patient improving appropriate for UTI. - Plan for 2 more days of IV antibiotics and plan to switch to by mouth antibiotics outpatient. Qualifiers: Sepsis type: sepsis due to unspecified organism Qualified Code(s): A41.9 - Sepsis, unspecified organism (2) UTI (urinary tract infection) Current Visit: Yes Status: Acute Assessment and plan: Patient presented with low back pain Urinary Tract Infection in the Setting of Hyperglycemia and Diabetic Ketoacidosis. Patient has had frequent urinary tract infections with roughly 5-6 in the last year. She has had pyelonephritis multiple times in the past. -Urinary symptoms have resolved. - Escherichia coli urinary tract infection. Plan: - Continue Rocephin 1 g every 12 hours - Monitor renal function - Patient to continue by mouth rehydration Qualifiers: Urinary tract infection type: site unspecified Hematuria presence: with hematuria Qualified Code(s): N39.0 - Urinary tract infection, site not specified; R31.9 - Hematuria, unspecified (3) Diabetic ketoacidosis associated with type 1 diabetes mellitus Current Visit: Yes Status: Acute Assessment and plan: Patient presented with back pain, polyuria, thought of urinary tract infection and glucose of 435, anion gap of 17, beta hydroxybutyrate greater than 2.0, urinalysis demonstrates positive for UTI plus greater than 1000 glucose and high for ketones.. - Patient originally started on insulin to Levemir for coverage 06/08/2016: Anion gap closed. hyperglycemia improving. Insulin increased. 06/09/2016: Patient continues to have episodes of hyperglycemia but without an anion gap or other signs of DKA. Plan: - We will continue to monitor electrolytes. Qualifiers: Qualified Code(s): E10.10 - Type 1 diabetes mellitus with ketoacidosis without coma (4) Diabetes type I Current Visit: Yes Status: Acute Assessment and plan: Patient is a 25-year-old female with type 1 diabetes diagnosed at the age of 10. She states her average glucoses run around 200. She follows up with endocrinology at [facility] and usually uses an insulin pump. Her last insulin pump ran out's yesterday evening prior to leaving on a road trip from [place] back to [place]. She has had difficulty controlling her glucoses in the past. - A1c 7.7 - Hyperglycemic today. Plan: - Patient to restart insulin pump - Continue ACHS glucose checks Qualifiers: Diabetes mellitus complication status: with hyperglycemia Qualified Code(s) : E10.65 - Type 1 diabetes mellitus with hyperglycemia (5) Bacteremia due to Escherichia coli Current Visit: Yes Status: Acute Assessment and plan: Patient presented septic. Found to have E.coli bacteremia and is already covered with Rocephin for UTI. - + bc x2 Plan: - Continue IV antibiotics for 2 more days, then plan to switch to by mouth antibiotic coverage - repeat blood cultures collected with final growth pending. - Subjective Interval history: Ms. Quintana 25-year-old female seen and evaluated patient bedside this morning. She is alert awake oriented in no acute distress. She denies any discomforts this morning. She has no further concerns. Tolerating antibiotics. Denies any fevers, chills, diaphoresis, abdominal pains, nausea vomiting diarrhea constipation overnight. - Constitutional Vitals: Temp Pulse Resp BP Pulse Ox 98.9 F 97 16 109/69 98 06/09/16 07:10 06/09/16 07:10 06/09/16 07:10 06/09/16 07:10 06/09/16 07:10 General appearance: Present: mild distress, A&O X 3, answers questions appropriately - Head Head exam: Present: atraumatic, normocephalic - Eye Eye exam: Present: PERRL, conjuntiva pink, sclera anicteric Pupils: Present: PERRL - ENT ENT exam: Present: mucous membranes moist - Neck Neck exam general surgery: Present: supple, trachea midline. Absent: lymphadenopathy - Respiratory Respiratory exam: Present: CTAB. Absent: accessory muscle use, rales, rhonchi, wheezes - Cardiovascular Cardiovascular exam: Present: RRR, +S1, +S2. Absent: diastolic murmur, gallop, rubs, systolic murmur - GI/Abdominal GI/Abdominal exam: Present: normal bowel sounds, soft, no peritoneal signs. Absent: distended, tenderness - Extremities Exam Extremities exam: Present: warm, radial pulses palpable and symetrical. Absent : calf tenderness, cyanotic, pedal edema - Neurological Exam Neurological exam: Present: alert, oriented X3, no focal deficits. Absent: pronater drift, facial droop, speech deficit - Psychiatric Psychiatric exam: Present: normal affect, normal mood Internal Medicine: Result - Labs CBC & Chem 7: 06/09/16 05:48 06/09/16 05:48 Consult Discharge Plan - Plan Referrals: Fadumo Booker MD [Primary Care Provider] - <Jarrett Gannon - Last Filed: 06/09/16 19:23> Date of Encounter: 06/09/16 - Constitutional Vitals: Temp Pulse Resp BP Pulse Ox 97.6 F 87 16 110/66 98 06/09/16 15:36 06/09/16 15:36 06/09/16 15:36 06/09/16 15:36 06/09/16 15:36 Internal Medicine: Result - Labs CBC & Chem 7: 06/09/16 13:35 06/09/16 13:35 Labs: Short CBC 06/09/16 Range/Units 13:35 WBC 6.0 (4.3-11.1) K/mcL Hgb 9.9 L (11.5-15.4) g/dL Hct 30.6 L (35.3-44.9) % Plt Count 186 (140-400) K/mcL BMP 06/09/16 13:35 Sodium 138 Potassium 3.8 Chloride 104 Carbon Dioxide 20 BUN 8 Creatinine 1.03 Glucose 386 H Calcium 8.7 - Attending Attestation I examined this patient and my medical decision-making was reviewed with the Resident Physician, Dr. Singh. I agree with the documented findings, disposition and treatment plan as described except to the extent set forth below. She appears in no acute distress awake alert oriented heart is regular S1-S2 no murmurs. Lungs are clear. We will change ceftriaxone to 2 g daily. Discontinue Levaquin. Stop IV fluids. Encourage ambulation. I reviewed the report of the CT of the abdomen and pelvis. We will proceed with ultrasound of the gallbladder as recommended by CT findings. I have discussed the case with ID and will plan to transition to oral antibiotics and discharge home in 1-2 days. We will follow-up blood culture.
[2016-06-09 13:45] LABS: Hematocrit 30.6 % (35.3-44.9); Hemoglobin 9.9 g/dL (11.5-15.4); Mean Corpuscular HGB Conc 32.4 g/dL (31.6-35.5); Mean Corpuscular Volume 92.7 fL (83.0-100.0); Platelet Count 186 K/mcL (140-400); Red Cell Distribution Width 12.3 % (11.5-14.5)
[2016-06-09 13:59] LABS: BUN/Creatinine Ratio 8 (6-26); Blood Urea Nitrogen 8 mg/dL (7-20); Calcium 8.7 mg/dL (8.6-10.8); Carbon Dioxide 20 mEq/L (19-29); Chloride 104 mEq/L (98-109); Glucose 386 mg/dL (70-99); Osmolality,Calculated 300 (280-300); Potassium 3.8 mEq/L (3.5-4.5); Sodium 138 mEq/L (136-145); eGFR For African Americans > 60 (> 60); eGFR For Non-African Americans > 60 (> 60)
[2016-06-09] MEDS: Ketorolac 30 MG/ML VIAL IVP PRN (18:05)
--- NOTE | 2016-06-09 20:15 | Urology Progress Note ---
Date of Encounter: 06/09/16 Time of Encounter: 20:13 - Assessment and Plan (1) History of kidney stones Current Visit: Yes Status: Acute Assessment and plan: No stones seen on CT. (2) Pyelonephritis Current Visit: Yes Status: Acute Assessment and plan: Transition to PO antibiotics per ID. Appreciate IM and ID support. will sign off. She can follow up with me in 1-2 weeks for further management/prevention of UTI. Progress Note Narrative: doing well. CT reviewed. No evidence of nephrolithiasis. Urine culture growing out E. coli. Objective Initial Vital Signs Temp Pulse Resp BP Pulse Ox 98.8 F 123 20 108/70 98 06/06/16 22:57 06/06/16 22:57 06/06/16 22:57 06/06/16 22:57 06/06/16 22:57 - General physical appearance Present: well developed, well nourished, no distress - Respiratory Present: normal respiratory effort - Abdomen Present: soft - Labs 06/09/16 13:35 06/09/16 13:35 Diabetes panel 06/09/16 Range/Units 13:35 Sodium 138 (136-145) mEq/L Potassium 3.8 (3.5-4.5) mEq/L Chloride 104 (98-109) mEq/L Carbon Dioxide 20 (19-29) mEq/L BUN 8 (7-20) mg/dL Creatinine 1.03 (0.57-1.11) mg/dL Glucose 386 H (70-99) mg/dL Calcium 8.7 (8.6-10.8) mg/dL Calcium panel 06/09/16 Range/Units 13:35 Calcium 8.7 (8.6-10.8) mg/dL Pituitary panel 06/09/16 Range/Units 13:35 Sodium 138 (136-145) mEq/L Potassium 3.8 (3.5-4.5) mEq/L Chloride 104 (98-109) mEq/L Carbon Dioxide 20 (19-29) mEq/L BUN 8 (7-20) mg/dL Creatinine 1.03 (0.57-1.11) mg/dL Glucose 386 H (70-99) mg/dL Calcium 8.7 (8.6-10.8) mg/dL Adrenal panel 06/09/16 Range/Units 13:35 Sodium 138 (136-145) mEq/L Potassium 3.8 (3.5-4.5) mEq/L Chloride 104 (98-109) mEq/L Carbon Dioxide 20 (19-29) mEq/L BUN 8 (7-20) mg/dL Creatinine 1.03 (0.57-1.11) mg/dL Glucose 386 H (70-99) mg/dL Calcium 8.7 (8.6-10.8) mg/dL Consult Discharge Plan - Plan Referrals: Fadumo Booker MD [Primary Care Provider] -
[2016-06-09] MEDS: Melatonin 3 MG TABLET PO SCH (21:51)
[2016-06-10] MEDS: *HR* OxyCODONE Immed Rel 5 MG TABLET PO PRN (00:58)
[2016-06-10 03:25] LABS: Basophils % 0.4 %; Eosinophils # 0.1 K/mcL (0.0-0.6); Eosinophils % 1.7 %; Hematocrit 27.7 % (35.3-44.9); Hemoglobin 9.3 g/dL (11.5-15.4); Immature Granulocytes % 0.2 % (0-4); Lymphocytes # 1.3 K/mcL (0.6-4.6); Lymphocytes % 27.2 %; Mean Corpuscular HGB Conc 33.6 g/dL (31.6-35.5); Mean Corpuscular Hemoglobin 30.4 pg (28.0-33.3); Mean Corpuscular Volume 90.5 fL (83.0-100.0); Mean Platelet Volume 11.1 fL (9.4-12.4); Monocytes # 0.4 K/mcL (0.0-1.3); Monocytes % 9.1 %; Platelet Count 200 K/mcL (140-400); Red Blood Count 3.06 M/mcL (3.82-4.97); Red Cell Distribution Width 12.5 % (11.5-14.5); Segmented Neutrophils % 61.4 %
[2016-06-10] MEDS: Pantoprazole 40 MG VIAL IVP SCH (05:25)
[2016-06-10] MEDS: clonazePAM 0.5 MG TABLET PO SCH (08:00)
[2016-06-10] MEDS: Lactobacillus 1 EACH CAP.SPRINK PO SCH (08:06)
[2016-06-10] MEDS: Ketorolac 30 MG/ML VIAL IVP PRN (09:36)
[2016-06-10 11:48] VITALS: BP 121/76
--- NOTE | 2016-06-10 14:18 | Discharge Summary ---
Date of Encounter: 06/10/16 Time of Encounter: 14:14 - Discharge Diagnosis (1) Acute pyelonephritis Priority: Secondary Status: Acute (2) Sepsis Priority: Secondary Status: Acute Qualifiers: Sepsis type: Escherichia coli Qualified Code(s): A41.51 - Sepsis due to Escherichia coli [E. coli] (3) UTI (urinary tract infection) Priority: Secondary Status: Acute Qualifiers: Urinary tract infection type: acute cystitis Hematuria presence: with hematuria Qualified Code(s): N30.01 - Acute cystitis with hematuria (4) Diabetic ketoacidosis associated with type 1 diabetes mellitus Priority: Secondary Status: Acute Qualifiers: Diabetes mellitus complication detail: without coma Qualified Code(s): E10.10 - Type 1 diabetes mellitus with ketoacidosis without coma (5) Diabetes type I Priority: Secondary Status: Acute Qualifiers: Diabetes mellitus complication status: with hyperglycemia Qualified Code(s) : E10.65 - Type 1 diabetes mellitus with hyperglycemia (6) Bacteremia due to Escherichia coli Priority: Secondary Status: Acute - Discharge Medications Prescriptions: Cefdinir [Omnicef] 300 mg PO BID #14 capsule Home Medications: ClonazePAM [Klonopin] 0.5 mg PO BID PRN 04/11/15 [History] Insulin LISPRO [Humalog] 0 unit SQ DAILY MDD VIA INSUIN PUMP 04/11/15 [History] Vit Calc,Iron,Folic [ Vitamins] 1 tab PO DAILY 06/07/16 [ History] Cefdinir [Omnicef] 300 mg PO BID #14 capsule 06/10/16 [Rx] Allergies/Adverse Reactions: Allergies No Known Allergies Allergy (Verified 06/06/16 22:57) Procedures/tests Complete & Pending: Procedures Performed prior 72 hours Category Date Time Status US gall bladder [US] Stat Exams 06/09/16 20:30 Completed Date of admission: 06/09/16 07:44 Primary care physician: Fadumo Lao Patient Status Disposition: Home, Self-Care Condition: Good Functional capacity at discharge: independent ambulation Overall status at discharge: patient is back to baseline - Discharge Instructions Follow Up With: Fadumo Booker MD [Primary Care Provider] - Gorge Palomino MD [Partnered Physician] - - Diet and Activity Activity: increase activity as tolerated Diet: diabetic diet Hospital course: Hospital presentation: Ms. Quintana is a 25 year old female history significant for type 1 diabetes mellitus, asthma, recurrent UTIs and coxa plana who presented to the hospital for abdominal and back pain associated with nausea and vomiting. She primarily reported left-sided back and flank pain. She also noted low-grade fever of 100.2 -100.9 degrees Fahrenheit and dysuria. She has been experiencing nausea and vomiting and depressed appetite. She relates that current symptoms are reminiscent of her previous episode of pyelonephritis that led to inpatient admission. Destiny was admitted to the medical service and treated with broad-spectrum IV antibiotic, ceftriaxone. She was treated with vigorous IV fluid resuscitation per sepsis guidelines. She was noted to be initially hypotensive with blood pressure as low as 85 systolic. Hypotension responded to IV fluid resuscitation and she did not require pressor support. Her lactic acid level was below 2 and down trending. Blood cultures grew Escherichia coli sensitive to ceftriaxone 1 of the 2 cultures from the initial set drawn on admission. Repeat blood cultures are preliminarily negative. Urine culture grew Escherichia coli sensitive to ceftriaxone. She remained afebrile for the last 48 hours. Her tachycardia has resolved and white count is normal. She denies abdominal pain nausea and dysuria. She continues to have some left CVA tenderness. She was evaluated by infectious diseases who agreed with switching to oral antibiotics upon discharge. She was evaluated by urology recommended outpatient follow-up. CT of the abdomen and pelvis was done and showed no stones or anatomic abnormalities. Patient is currently medically stable for discharge home. She will be prescribed a course of Omnicef. - Time Spent with Patient Total time spent providing and/or coordinating discharge services: - Constitutional Vitals: Temp Pulse Resp BP Pulse Ox 98.2 F 87 18 121/76 94 06/10/16 11:44 06/10/16 11:44 06/10/16 11:44 06/10/16 11:44 06/10/16 11:44 General appearance: Present: mild distress, A&O X 3, answers questions appropriately - Respiratory Respiratory exam: Present: CTAB. Absent: accessory muscle use, rales, rhonchi, wheezes - Cardiovascular Cardiovascular exam: Present: RRR, +S1, +S2. Absent: diastolic murmur, gallop, rubs, systolic murmur - GI/Abdominal GI/Abdominal exam: Present: normal bowel sounds, soft, no peritoneal signs. Absent: distended, tenderness
[2016-06-12 08:07] LABS: ANA IgG by ELISA NONE DETECTED (None Detected)
[2016-06-12 08:28] LABS: MMA (VIT B12 STATUS) <0.10 umol/L (0.00-0.40); Myeloperoxidase Ab 2 AU/mL (0-19); Serine Protease-3 Antibody 0 AU/mL (0-19)
== END 2016-06-10 15:41 | disposition home or self-care (01) | DRG 871 ==
LOC: 3NENU 22:40 → EMEROO 22:40 → 3NENU 06-07 03:20
PROVIDERS: ADMIT Internal Medicine; ATTEND Internal Medicine

== ENCOUNTER 2020-12-13 12:45 | Observation (INO) ==
[2020-12-13 14:44] LABS: Basophils # 0.1 K/mcL (0.0-0.2); Basophils % 0.6 %; Eosinophils # 0.3 K/mcL (0.0-0.6); Eosinophils % 3.6 %; Hematocrit 35.6 % (35.3-44.9); Hemoglobin 11.7 g/dL (11.5-15.4); Immature Granulocytes % 0.7 % (0-4); Lymphocytes # 1.6 K/mcL (0.6-4.6); Lymphocytes % 19.6 %; Mean Corpuscular HGB Conc 32.9 g/dL (31.6-35.5); Mean Corpuscular Volume 94.4 fL (83.0-100.0); Mean Platelet Volume 12.7 fL (9.4-12.4); Monocytes # 0.4 K/mcL (0.0-1.3); Monocytes % 5.1 %; Neutrophils # 5.8 K/mcL (1.6-8.9); Platelet Count 139 K/mcL (140-400); Red Blood Count 3.77 M/mcL (3.82-4.97); Segmented Neutrophils % 70.4 %; White Blood Count 8.2 K/mcL (4.3-11.1)
[2020-12-13 14:56] LABS: Protein/Creatinine Ratio,Urine 0.15 mg/mg (0.00-0.20)
[2020-12-13 15:07] LABS: Alanine Aminotransferase 9 Units/L (7-52); Aspartate Amino Transferase 13 Units/L (13-39); BUN/Creatinine Ratio 9 (6-26); Blood Urea Nitrogen 6 mg/dL (6-20); Lactate Dehydrogenase 111 Units/L (140-271); Uric Acid 6.6 mg/dL (2.3-7.6); eGFR For African Americans > 60 (> 60); eGFR For Non-African Americans > 60 (> 60)
[2020-12-13 15:13] LABS: Bilirubin,Urine Negative (Negative); Blood,Urine Negative (Negative); Clarity,Urine Turbid (Clear); Color,Urine Light-Orange (Yellow); Glucose,Urine (UA) >=1000 mg/dL (Normal); Ketones,Urine 80 mg/dL (Negative); Leukocyte Esterase,Urine Trace (Negative); Nitrite,Urine Negative (Negative); Protein,Urine 70 mg/dL (Neg-Trace); Specific Gravity,Urine 1.023 (1.010-1.025); Urobilinogen,Urine Normal (Normal)
[2020-12-13] MEDS ORDERED: Ondansetron 4 MG/2 ML VIAL IVP ONE (15:34)
[2020-12-13] MEDS ORDERED: Ringers Solution, Lactated 1,000 ML ONE (15:37)
[2020-12-13] MEDS ORDERED: Ringers Solution, Lactated 1,000 ML IVC SCH (15:45)
[2020-12-13 15:52] LABS: Squamous Epithelial Cell,Urine Many per hpf (None-Few); WBC,Urine 0-3 per hpf (0-3)
[2020-12-13 15:53] LABS: Bacteria,Urine Moderate per hpf (None-Few)
== END 2020-12-13 17:17 | disposition home or self-care (01) ==
LOC: 1NENULAB
PROVIDERS: ADMIT Obstetrics & Gynecology; ATTEND Obstetrics & Gynecology

== ENCOUNTER 2021-01-03 15:06 | Inpatient (IN) ==
[2021-01-03] MEDS ORDERED: CeFAZolin 2,000 MG/120 ML BAG IVPB ONE (15:08)
[2021-01-03] MEDS ORDERED: Ringers Solution, Lactated 1,000 ML IVC ONE (15:08)
[2021-01-03] MEDS ORDERED: Famotidine 20 MG/2 ML VIAL IVP ONE (15:08)
[2021-01-03] MEDS ORDERED: Azithromycin 500 MG in 0.9 % Sodium Chloride 250 ML IVPB PRN (15:08)
[2021-01-03] MEDS ORDERED: Oxytocin 20 units/ LR 1000 mL 20 UNIT/1,000 ML BAG IVC ONE ×4 (15:08→16:13)
[2021-01-03] MEDS ORDERED: Metoclopramide 10 MG/2 ML VIAL IVP ONE (15:08)
[2021-01-03] MEDS ORDERED: Ondansetron 4 MG/2 ML VIAL ONE (15:36)
[2021-01-03] MEDS ORDERED: *HR* Succinylcholine 200 MG/10 ML VIAL IVP ONE (15:36)
[2021-01-03] MEDS ORDERED: Acetaminophen IV 1,000 MG/100 ML BAG IVPB ONE (15:36)
[2021-01-03] MEDS ORDERED: Ketorolac 30 MG/ML VIAL ONE (15:36)
[2021-01-03 15:53] LABS: Basophils # 0.1 K/mcL (0.0-0.2); Basophils % 0.7 %; Eosinophils % 0.2 %; Hematocrit 41.5 % (35.3-44.9); Hemoglobin 12.9 g/dL (11.5-15.4); Immature Granulocytes % 1.3 % (0-4); Lymphocytes # 1.5 K/mcL (0.6-4.6); Lymphocytes % 12.1 %; Mean Corpuscular HGB Conc 31.1 g/dL (31.6-35.5); Mean Corpuscular Hemoglobin 30.4 pg (28.0-33.3); Mean Corpuscular Volume 97.6 fL (83.0-100.0); Mean Platelet Volume 12.3 fL (9.4-12.4); Monocytes # 0.6 K/mcL (0.0-1.3); Monocytes % 4.3 %; Neutrophils # 10.3 K/mcL (1.6-8.9); Platelet Count 269 K/mcL (140-400); Red Blood Count 4.25 M/mcL (3.82-4.97); Red Cell Distribution Width 13.3 % (11.5-14.5); Segmented Neutrophils % 81.4 %; White Blood Count 12.7 K/mcL (4.3-11.1)
[2021-01-03 16:11] LABS: Uric Acid 11.7 mg/dL (2.3-7.6)
[2021-01-03] MEDS ORDERED: Naloxone 0.4 MG/ML INJ IVP PRN ×3 (16:35→19:29)
[2021-01-03] MEDS ORDERED: Morphine PCA 30 MG/ 30 ML 30 ML PCA.VIAL IVC PRN ×2 (16:35→19:29)
[2021-01-03 16:57] LABS: Amphetamine Screen,Urine Negative ng/mL (Cutoff=1000); Barbiturate Screen,Urine Negative ng/mL (Cutoff=200); Benzodiazepines Screen,Urine Negative ng/mL (Cutoff=200); Cannabinoid Screen,Urine Negative ng/mL (Cutoff = 50); Cocaine Screen,Urine Negative ng/mL (Cutoff= 300); Opiate Screen,Urine Negative ng/mL (Cutoff=300); Phencyclidine Screen,Urine Negative ng/mL (Cutoff=25)
[2021-01-03] MEDS ORDERED: Methylergonovine 0.2 MG/ML AMPUL IM ONE (17:11)
[2021-01-03] MEDS ORDERED: miSOPROStoL 100 MCG TABLET RC ONE (17:11)
[2021-01-03 17:51] LABS: Creatinine,Urine 30 mg/dL; Protein/Creatinine Ratio,Urine 1.97 mg/mg (0.00-0.20)
[2021-01-03] MEDS ORDERED: Insulin LISPRO 300 UNITS/3 ML VIAL SUBQ ONE (17:53)
[2021-01-03] MEDS ORDERED: Dextrose Gel 15 GM/37.5 ML TUBE PO PRN ×4 (17:56→19:29)
[2021-01-03] MEDS ORDERED: D5% in Water 1,000 ML IVC PRN ×2 (17:56→19:29)
[2021-01-03] MEDS ORDERED: *HR* Dextrose 50 % in Water (Syg) 50 ML SYRINGE IVP PRN ×7 (17:56→20:01)
[2021-01-03] MEDS ORDERED: *HR* Labetalol 20 MG/4 ML SYRINGE IVP PRN ×2 (17:57→19:29)
[2021-01-03 17:58] LABS: Calcium 8.9 mg/dL (8.6-10.3); Potassium 4.9 mEq/L (3.5-5.1)
[2021-01-03] MEDS ORDERED: Insulin Regular, Human 100 UNIT/ML IV PRN ×5 (18:01→20:01)
[2021-01-03] MEDS ORDERED: D5% in 0.45% NACL w KCl 20 MEQ/1,000 ML MLS IVC PRN (18:01)
[2021-01-03] MEDS ORDERED: 0.9 % Sodium Chloride 2,000 ML ONE (18:13)
[2021-01-03] MEDS ORDERED: 0.9 % Sodium Chloride 1,000 ML IVC SCH ×2 (18:15)
[2021-01-03] MEDS ORDERED: 0.9 % Sodium Chloride w KCl 20 MEQ/1,000 ML MLS IVC SCH ×2 (18:15→22:00)
[2021-01-03] MEDS ORDERED: Ibuprofen 600 MG TABLET PO SCH (19:29)
[2021-01-03] MEDS ORDERED: Metoclopramide 10 MG/2 ML VIAL IVP PRN (19:29)
[2021-01-03] MEDS ORDERED: Simethicone 80 MG TAB.CHEW PO PRN (19:29)
[2021-01-03] MEDS ORDERED: Oxytocin 20 units/ LR 1000 mL 20 UNIT/1,000 ML BAG IVC SCH ×2 (19:29)
[2021-01-03] MEDS ORDERED: *HR* Metoprolol 5 MG/5 ML VIAL IVP ONE ×2 (19:50→19:57)
[2021-01-03] MEDS ORDERED: *HR* LORazepam 2 MG/ML VIAL ONE ×2 (19:53→19:57)
[2021-01-03 20:01] LABS: Basophils # 0.1 K/mcL (0.0-0.2); Basophils % 0.6 %; Eosinophils # 0.1 K/mcL (0.0-0.6); Eosinophils % 0.2 %; Hematocrit 32.6 % (35.3-44.9); Immature Granulocytes % 3.6 % (0-4); Lymphocytes # 2.3 K/mcL (0.6-4.6); Lymphocytes % 9.8 %; Mean Corpuscular HGB Conc 29.1 g/dL (31.6-35.5); Mean Corpuscular Hemoglobin 30.2 pg (28.0-33.3); Mean Corpuscular Volume 103.5 fL (83.0-100.0); Mean Platelet Volume 12.2 fL (9.4-12.4); Monocytes # 0.9 K/mcL (0.0-1.3); Monocytes % 3.9 %; Neutrophils # 19.3 K/mcL (1.6-8.9); Nucleated Red Blood Cells 0.1 /100 WBC (0); Platelet Count 286 K/mcL (140-400); Red Blood Count 3.15 M/mcL (3.82-4.97); Red Cell Distribution Width 13.2 % (11.5-14.5); Segmented Neutrophils % 81.9 %
[2021-01-03 20:02] LABS: Hemoglobin 9.5 g/dL (11.5-15.4); White Blood Count 23.6 K/mcL (4.3-11.1)
[2021-01-03 20:05] LABS: VBG HCO3 4 mEq/L (21-27); VBG PCO2 18 mmHg (41-51); VBG PH 6.93 pH Units (7.32-7.42); VBG PO2 127 mmHg (25-50)
[2021-01-03] MEDS ORDERED: RINGERS IVC SCH ×3 (20:30→21:00)
[2021-01-03] MEDS ORDERED: LACTATED IVC SCH ×3 (20:30→21:00)
[2021-01-03] MEDS ORDERED: OXYTOCIN IVC SCH ×3 (20:30→21:00)
[2021-01-03] MEDS ORDERED: OXYTOCIN IM SCH (20:45)
[2021-01-03] MEDS ORDERED: LACTATED IM SCH (20:45)
[2021-01-03] MEDS ORDERED: RINGERS IM SCH (20:45)
[2021-01-03 20:46] LABS: Calcium 8.1 mg/dL (8.6-10.3); Magnesium 1.7 mg/dL (1.6-2.6); Potassium 5.1 mEq/L (3.5-5.1)
[2021-01-03] MEDS: Acetaminophen 325 MG TABLET PO SCH (20:57)
[2021-01-03] MEDS ORDERED: Insulin LISPRO 300 UNITS/3 ML VIAL SUBQ SCH ×2 (21:00)
[2021-01-03] MEDS: 0.9 % Sodium Chloride w KCl 20 MEQ/1,000 ML MLS IVC SCH (22:06)
[2021-01-03] MEDS: D5% in 0.45% NACL w KCl 20 MEQ/1,000 ML MLS IVC SCH (23:06)
[2021-01-04] MEDS: metroNIDAZOLE 500 MG TABLET PO SCH ×4 (02:50→20:10)
[2021-01-04] MEDS: cephALEXin 500 MG CAPSULE PO SCH ×4 (02:50→20:10)
[2021-01-04] MEDS: 0.9 % Sodium Chloride w KCl 20 MEQ/1,000 ML MLS IVC SCH ×5 (02:53→16:25)
[2021-01-04] MEDS: D5% in 0.45% NACL w KCl 20 MEQ/1,000 ML MLS IVC SCH ×4 (03:19→15:21)
[2021-01-04 04:49] LABS: VBG Ionized Calcium 1.17 mmol/L (1.15-1.35)
[2021-01-04 04:58] LABS: Basophils % 0.2 %; Hematocrit 23.1 % (35.3-44.9); Hemoglobin 7.3 g/dL (11.5-15.4); Immature Granulocytes % 1.3 % (0-4); Lymphocytes # 1.1 K/mcL (0.6-4.6); Lymphocytes % 9.2 %; Mean Corpuscular HGB Conc 31.6 g/dL (31.6-35.5); Mean Corpuscular Hemoglobin 30.2 pg (28.0-33.3); Mean Corpuscular Volume 95.5 fL (83.0-100.0); Mean Platelet Volume 12.1 fL (9.4-12.4); Monocytes # 0.9 K/mcL (0.0-1.3); Monocytes % 7.4 %; Neutrophils # 9.7 K/mcL (1.6-8.9); Platelet Count 150 K/mcL (140-400); Red Blood Count 2.42 M/mcL (3.82-4.97); Red Cell Distribution Width 12.9 % (11.5-14.5); Segmented Neutrophils % 81.9 %; White Blood Count 11.9 K/mcL (4.3-11.1)
[2021-01-04 05:12] LABS: Calcium 7.3 mg/dL (8.6-10.3); Magnesium 1.2 mg/dL (1.6-2.6); Phosphorous 1.6 mg/dL (2.7-4.5)
[2021-01-04] MEDS: Acetaminophen 325 MG TABLET PO SCH ×4 (05:25→20:10)
[2021-01-04] MEDS ORDERED: 0.9 % Sodium Chloride 1,000 ML ONE (06:39)
[2021-01-04] MEDS ORDERED: Insulin LISPRO 300 UNITS/3 ML VIAL SUBQ SCH ×2 (07:30)
[2021-01-04] MEDS: *HR* Enoxaparin 40 MG/0.4 ML SYRINGE SQ SCH ×2 (09:05→20:10)
[2021-01-04] MEDS: *HR* OxyCODONE Immed Rel 5 MG TABLET PO PRN ×2 (09:06→21:04)
[2021-01-04 11:57] LABS: INR 0.9; Prothrombin Time 10.2 Seconds (9.4-12.1)
[2021-01-04 11:59] LABS: Activated Partial Thrombo Time 27.5 Seconds (26.0-36.0)
[2021-01-04] MEDS: Oxytocin 20 units/ LR 1000 mL 20 UNIT/1,000 ML BAG IVC SCH ×3 (12:54→15:23)
[2021-01-04 13:12] LABS: Estimated Average Glucose 180 mg/dl; Hemoglobin A1C 7.9 %
[2021-01-04 13:21] LABS: BUN/Creatinine Ratio 15 (6-26); Blood Urea Nitrogen 16 mg/dL (6-20); Calcium 7.3 mg/dL (8.6-10.3); Carbon Dioxide 18 mEq/L (23-29); Chloride 111 mEq/L (98-107); Glucose 119 mg/dL (70-105); Osmolality,Calculated 280 (280-300); Potassium 4.6 mEq/L (3.5-5.1); Sodium 134 mEq/L (136-145); eGFR For African Americans > 60 (> 60); eGFR For Non-African Americans 59 (> 60)
[2021-01-04] MEDS: Ondansetron 4 MG/2 ML VIAL IVP PRN (13:22)
[2021-01-04] MEDS: Prenatal Vit/FA 1 EACH TABLET PO SCH (14:11)
[2021-01-04] MEDS: Insulin LISPRO 300 UNITS/3 ML VIAL SUBQ SCH (15:22)
[2021-01-04] MEDS ORDERED: Insulin DETEMIR 100 UNIT/ML X5UNITS SUBQ ONE (16:30)
[2021-01-04 20:19] LABS: BUN/Creatinine Ratio 16 (6-26); Blood Urea Nitrogen 15 mg/dL (6-20); Calcium 7.4 mg/dL (8.6-10.3); Carbon Dioxide 16 mEq/L (23-29); Chloride 111 mEq/L (98-107); Glucose 177 mg/dL (70-105); Osmolality,Calculated 283 (280-300); Sodium 134 mEq/L (136-145); eGFR For African Americans > 60 (> 60); eGFR For Non-African Americans > 60 (> 60)
[2021-01-05] MEDS: Ibuprofen 600 MG TABLET PO SCH ×4 (02:44→17:20)
[2021-01-05] MEDS: Acetaminophen 325 MG TABLET PO SCH ×4 (02:44→20:25)
[2021-01-05] MEDS ORDERED: Furosemide 20 MG/2 ML VIAL IVP ONE ×2 (03:09→20:13)
[2021-01-05 05:16] LABS: Hematocrit 29.5 % (35.3-44.9); Mean Corpuscular HGB Conc 34.2 g/dL (31.6-35.5); Mean Corpuscular Hemoglobin 30.9 pg (28.0-33.3); Mean Corpuscular Volume 90.2 fL (83.0-100.0); Mean Platelet Volume 12.2 fL (9.4-12.4); Platelet Count 144 K/mcL (140-400); Red Blood Count 3.27 M/mcL (3.82-4.97); Red Cell Distribution Width 13.1 % (11.5-14.5); White Blood Count 10.4 K/mcL (4.3-11.1)
[2021-01-05 05:18] LABS: Hemoglobin 10.1 g/dL (11.5-15.4)
[2021-01-05 05:25] LABS: BUN/Creatinine Ratio 16 (6-26); Blood Urea Nitrogen 14 mg/dL (6-20); Calcium 7.9 mg/dL (8.6-10.3); Carbon Dioxide 20 mEq/L (23-29); Chloride 109 mEq/L (98-107); Glucose 111 mg/dL (70-105); Osmolality,Calculated 283 (280-300); Potassium 4.5 mEq/L (3.5-5.1); Sodium 136 mEq/L (136-145); eGFR For African Americans > 60 (> 60); eGFR For Non-African Americans > 60 (> 60)
[2021-01-05] MEDS: cephALEXin 500 MG CAPSULE PO SCH ×2 (08:54→13:57)
[2021-01-05] MEDS: *HR* OxyCODONE Immed Rel 5 MG TABLET PO PRN ×2 (08:54→21:15)
[2021-01-05] MEDS: Insulin LISPRO 300 UNITS/3 ML VIAL SUBQ SCH ×3 (08:54→17:19)
[2021-01-05] MEDS: metroNIDAZOLE 500 MG TABLET PO SCH ×2 (08:54→13:57)
[2021-01-05] MEDS: Prenatal Vit/FA 1 EACH TABLET PO SCH (08:55)
[2021-01-05] MEDS: *HR* Enoxaparin 40 MG/0.4 ML SYRINGE SQ SCH ×2 (08:55→20:26)
[2021-01-05] MEDS: Insulin DETEMIR 100 UNIT/ML X5UNITS SUBQ SCH ×2 (09:00→20:27)
[2021-01-05 14:58] LABS: Magnesium 1.4 mg/dL (1.6-2.6)
[2021-01-05] MEDS: Ondansetron 4 MG/2 ML VIAL IVP PRN (16:13)
[2021-01-06] MEDS: Ibuprofen 600 MG TABLET PO SCH ×5 (00:32→23:56)
[2021-01-06] MEDS: Acetaminophen 325 MG TABLET PO SCH ×4 (04:39→23:56)
[2021-01-06] MEDS: Insulin LISPRO 300 UNITS/3 ML VIAL SUBQ SCH ×3 (08:33→16:54)
[2021-01-06] MEDS: Prenatal Vit/FA 1 EACH TABLET PO SCH (08:38)
[2021-01-06] MEDS: *HR* Enoxaparin 40 MG/0.4 ML SYRINGE SQ SCH ×2 (08:39→20:17)
[2021-01-06] MEDS: Insulin DETEMIR 100 UNIT/ML X5UNITS SUBQ SCH (09:09)
[2021-01-06 09:35] LABS: Hematocrit 24.2 % (35.3-44.9); Mean Corpuscular HGB Conc 34.3 g/dL (31.6-35.5); Mean Corpuscular Hemoglobin 31.3 pg (28.0-33.3); Mean Corpuscular Volume 91.3 fL (83.0-100.0); Mean Platelet Volume 11.6 fL (9.4-12.4); Platelet Count 194 K/mcL (140-400); Red Blood Count 2.65 M/mcL (3.82-4.97); Red Cell Distribution Width 13.3 % (11.5-14.5); White Blood Count 7.9 K/mcL (4.3-11.1)
[2021-01-06 09:36] LABS: Hemoglobin 8.3 g/dL (11.5-15.4)
[2021-01-06 09:55] LABS: BUN/Creatinine Ratio 15 (6-26); Blood Urea Nitrogen 11 mg/dL (6-20); Calcium 7.7 mg/dL (8.6-10.3); Carbon Dioxide 26 mEq/L (23-29); Chloride 106 mEq/L (98-107); Glucose 68 mg/dL (70-105); Osmolality,Calculated 288 (280-300); Potassium 3.6 mEq/L (3.5-5.1); Sodium 140 mEq/L (136-145); eGFR For African Americans > 60 (> 60); eGFR For Non-African Americans > 60 (> 60)
[2021-01-06] MEDS ORDERED: Magnesium Sulf 20 gm/SW 500mL 20 GM/500 ML IV.SOLN IVC SCH (12:30)
[2021-01-06] MEDS ORDERED: Naloxone 0.4 MG/ML INJ IVP PRN (14:03)
[2021-01-06] MEDS ORDERED: *HR* Dextrose 50 % in Water (Syg) 50 ML SYRINGE IVP PRN (14:03)
[2021-01-06] MEDS ORDERED: *HR* OxyCODONE Immed Rel 5 MG TABLET PO PRN (14:03)
[2021-01-06] MEDS ORDERED: D5% in Water 1,000 ML IVC PRN (14:03)
[2021-01-06] MEDS ORDERED: Simethicone 80 MG TAB.CHEW PO PRN (14:03)
[2021-01-06] MEDS ORDERED: Dextrose Gel 15 GM/37.5 ML TUBE PO PRN ×2 (14:03)
[2021-01-06] MEDS ORDERED: Metoclopramide 10 MG/2 ML VIAL IVP PRN (14:03)
[2021-01-06] MEDS ORDERED: Ondansetron 4 MG/2 ML VIAL IVP PRN (14:03)
[2021-01-06] MEDS: Magnesium Sulf 20 gm/SW 500mL 20 GM/500 ML IV.SOLN IVC SCH (14:50)
[2021-01-06] MEDS ORDERED: NIFEdipine Immed Rel 10 MG CAPSULE PO SCH ×2 (15:00)
[2021-01-06] MEDS ORDERED: Calcium Gluconate 1,000 MG/10 ML VIAL IVP PRN (16:47)
[2021-01-06] MEDS: NIFEdipine XL (24 HR) 60 MG TAB.ER.24 PO SCH (17:27)
[2021-01-06] MEDS ORDERED: *HR* Labetalol 20 MG/4 ML SYRINGE IVP PRN ×3 (19:08)
[2021-01-06] MEDS ORDERED: Insulin DETEMIR 100 UNIT/ML X5UNITS SUBQ SCH ×2 (21:00)
[2021-01-06 21:21] LABS: Basophils # 0.1 K/mcL (0.0-0.2); Basophils % 0.6 %; Eosinophils # 0.2 K/mcL (0.0-0.6); Eosinophils % 2.5 %; Hematocrit 23.7 % (35.3-44.9); Hemoglobin 8.1 g/dL (11.5-15.4); Immature Granulocytes % 3.2 % (0-4); Lymphocytes # 1.4 K/mcL (0.6-4.6); Lymphocytes % 17.9 %; Mean Corpuscular HGB Conc 34.2 g/dL (31.6-35.5); Mean Corpuscular Hemoglobin 30.7 pg (28.0-33.3); Mean Corpuscular Volume 89.8 fL (83.0-100.0); Mean Platelet Volume 11.9 fL (9.4-12.4); Monocytes # 0.4 K/mcL (0.0-1.3); Monocytes % 4.5 %; Neutrophils # 5.6 K/mcL (1.6-8.9); Nucleated Red Blood Cells 0.4 /100 WBC (0); Platelet Count 127 K/mcL (140-400); Red Blood Count 2.64 M/mcL (3.82-4.97); Red Cell Distribution Width 13.2 % (11.5-14.5); Segmented Neutrophils % 71.3 %; White Blood Count 7.9 K/mcL (4.3-11.1)
[2021-01-06 21:46] LABS: Alanine Aminotransferase 8 Units/L (7-52); Aspartate Amino Transferase 22 Units/L (13-39); BUN/Creatinine Ratio 12 (6-26); Blood Urea Nitrogen 11 mg/dL (6-20); Lactate Dehydrogenase 307 Units/L (140-271); Uric Acid 5.1 mg/dL (2.3-7.6); eGFR For African Americans > 60 (> 60); eGFR For Non-African Americans > 60 (> 60)
[2021-01-06 21:58] LABS: Platelet Clumps Few (Not Present)
[2021-01-07] MEDS: Insulin LISPRO 300 UNITS/3 ML VIAL SUBQ SCH ×3 (05:15→17:36)
[2021-01-07 06:13] LABS: Hematocrit 23.8 % (35.3-44.9); Hemoglobin 7.9 g/dL (11.5-15.4); Mean Corpuscular HGB Conc 33.2 g/dL (31.6-35.5); Mean Corpuscular Hemoglobin 30.9 pg (28.0-33.3); Mean Platelet Volume 11.6 fL (9.4-12.4); Platelet Count 189 K/mcL (140-400); Red Blood Count 2.56 M/mcL (3.82-4.97); Red Cell Distribution Width 13.3 % (11.5-14.5); White Blood Count 6.8 K/mcL (4.3-11.1)
[2021-01-07 06:24] LABS: BUN/Creatinine Ratio 15 (6-26); Blood Urea Nitrogen 12 mg/dL (6-20); Calcium 7.7 mg/dL (8.6-10.3); Carbon Dioxide 29 mEq/L (23-29); Chloride 99 mEq/L (98-107); Glucose 303 mg/dL (70-105); Osmolality,Calculated 289 (280-300); Potassium 3.6 mEq/L (3.5-5.1); Sodium 134 mEq/L (136-145); eGFR For African Americans > 60 (> 60); eGFR For Non-African Americans > 60 (> 60)
[2021-01-07] MEDS: Acetaminophen 325 MG TABLET PO SCH ×2 (07:48→11:58)
[2021-01-07] MEDS: Ibuprofen 600 MG TABLET PO SCH ×2 (07:48→11:59)
[2021-01-07] MEDS: NIFEdipine XL (24 HR) 60 MG TAB.ER.24 PO SCH (08:49)
[2021-01-07] MEDS: *HR* Enoxaparin 40 MG/0.4 ML SYRINGE SQ SCH (08:49)
[2021-01-07] MEDS: Magnesium Sulf 20 gm/SW 500mL 20 GM/500 ML IV.SOLN IVC SCH (08:56)
[2021-01-07] MEDS ORDERED: Prenatal Vit/FA 1 EACH TABLET PO SCH (09:00)
[2021-01-07] MEDS ORDERED: Insulin DETEMIR 100 UNIT/ML X5UNITS SUBQ SCH ×2 (09:00→21:00)
[2021-01-07 12:19] VITALS: O2SAT 94
[2021-01-07 16:00] VITALS: PULSE 108; TEMP 98.4
[2021-01-07 17:22] VITALS: BP 146/82
== END 2021-01-07 18:18 | disposition home or self-care (01) | DRG 786 ==
LOC: 1NENULAB 15:06 → 2NNU 19:35 → ICNU 20:35 → 1NENUPED 01-06 16:03
PROVIDERS: ADMIT Obstetrics & Gynecology; ATTEND Obstetrics & Gynecology

== ENCOUNTER 2021-06-02 15:38 | Observation (INO) ==
[2021-06-02] MEDS ORDERED: Insulin Regular, Human 100 UNIT/ML IV ONE (16:06)
[2021-06-02] MEDS: 0.9 % Sodium Chloride 1,000 ML IVC SCH ×2 (16:19→17:18)
[2021-06-02 16:21] LABS: Basophils # 0.1 K/mcL (0.0-0.2); Basophils % 0.5 %; Eosinophils % 0.3 %; Hematocrit 49.6 % (35.3-44.9); Hemoglobin 15.1 g/dL (11.5-15.4); Immature Granulocytes % 0.6 % (0-4); Lymphocytes # 1.4 K/mcL (0.6-4.6); Lymphocytes % 12.5 %; Mean Corpuscular HGB Conc 30.4 g/dL (31.6-35.5); Mean Corpuscular Hemoglobin 29.7 pg (28.0-33.3); Mean Corpuscular Volume 97.6 fL (83.0-100.0); Mean Platelet Volume 10.7 fL (9.4-12.4); Monocytes # 0.5 K/mcL (0.0-1.3); Monocytes % 4.1 %; Platelet Count 356 K/mcL (140-400); Red Blood Count 5.08 M/mcL (3.82-4.97); Red Cell Distribution Width 12.6 % (11.5-14.5); White Blood Count 10.9 K/mcL (4.3-11.1)
[2021-06-02 16:26] LABS: VBG HCO3 6 mEq/L (21-27); VBG PCO2 19 mmHg (41-51); VBG PH 7.09 pH Units (7.32-7.42); VBG PO2 87 mmHg (25-50)
[2021-06-02] MEDS ORDERED: Ondansetron 4 MG/2 ML VIAL IVP ONE (16:29)
[2021-06-02 16:52] LABS: Estimated Average Glucose 229 mg/dl; Hemoglobin A1C 9.6 %
[2021-06-02 16:57] LABS: Calcium 9.6 mg/dL (8.6-10.3); Magnesium 1.9 mg/dL (1.6-2.6); Phosphorous 4.3 mg/dL (2.7-4.5); Potassium 4.2 mEq/L (3.5-5.1)
[2021-06-02 17:06] LABS: Bilirubin,Urine Negative (Negative); Blood,Urine Negative (Negative); Clarity,Urine Clear (Clear); Color,Urine Colorless (Yellow); Glucose,Urine (UA) >=1000 mg/dL (Normal); Ketones,Urine >150 mg/dL (Negative); Leukocyte Esterase,Urine Negative (Negative); Mucus,Urine Few per lpf (None-Few); Nitrite,Urine Negative (Negative); PH,Urine 5.5 pH Units (5.0-8.0); Protein,Urine 50 mg/dL (Neg-Trace); RBC,Urine 0-3 per hpf (0-3); Specific Gravity,Urine 1.027 (1.010-1.025); Squamous Epithelial Cell,Urine Few per hpf (None-Few); Urobilinogen,Urine Normal (Normal); WBC,Urine 0-3 per hpf (0-3)
[2021-06-02] MEDS ORDERED: Naloxone 0.4 MG/ML INJ IVP PRN (18:05)
[2021-06-02] MEDS ORDERED: Ondansetron 4 MG/2 ML VIAL IVP PRN (18:05)
[2021-06-02] MEDS ORDERED: Acetaminophen 325 MG TABLET PO PRN (18:05)
[2021-06-02] MEDS ORDERED: Insulin Regular, Human 100 UNIT/ML IV PRN (18:07)
[2021-06-02] MEDS ORDERED: *HR* Dextrose 50 % in Water (Syg) 50 ML SYRINGE IVP PRN (18:07)
[2021-06-02 18:24] LABS: Adenovirus Not Detected (Not Detect); Bordetella Pertussis Not Detected (Not Detect); Chlamydophila pneumoniae Not Detected (Not Detect); Coronavirus 229E Not Detected (Not Detect); Coronavirus HKU1 Not Detected (Not Detect); Coronavirus NL63 Not Detected (Not Detect); Coronavirus OC43 Not Detected (Not Detect); Human Metapneumovirus Not Detected (Not Detect); Human Rhinovirus/Enterovirus Not Detected (Not Detect); Influenza A Subtype 2009 H1 Not Detected (Not Detect); Influenza B Not Detected (Not Detect); Mycoplasma pneumoniae Not Detected (Not Detect); Parainfluenza Virus 1 Not Detected (Not Detect); Parainfluenza Virus 2 Not Detected (Not Detect); Parainfluenza Virus 3 Not Detected (Not Detect); Parainfluenza Virus 4 Not Detected (Not Detect); Respiratory Syncytial Virus Not Detected (Not Detect); SARS-CoV-2 Not Detected (Not Detect)
[2021-06-02] MEDS: 0.45 % Sodium Chloride w/KCl 20 MEQ/1,000 ML MLS IVC SCH (18:31)
[2021-06-02] MEDS: D5% in 0.45% NACL w KCl 20 MEQ/1,000 ML MLS IVC PRN ×2 (19:28→23:39)
[2021-06-02 20:11] LABS: VBG HCO3 15 mEq/L (21-27); VBG PCO2 33 mmHg (41-51); VBG PH 7.27 pH Units (7.32-7.42); VBG PO2 78 mmHg (25-50)
[2021-06-02 20:25] LABS: BUN/Creatinine Ratio 13 (6-26); Blood Urea Nitrogen 13 mg/dL (6-20); Calcium 8.3 mg/dL (8.6-10.3); Carbon Dioxide 15 mEq/L (23-29); Chloride 108 mEq/L (98-107); Glucose 135 mg/dL (70-105); Osmolality,Calculated 290 (280-300); Potassium 4.1 mEq/L (3.5-5.1); Sodium 139 mEq/L (136-145); eGFR For African Americans > 60 (> 60); eGFR For Non-African Americans > 60 (> 60)
[2021-06-02] MEDS: Pantoprazole 40 MG VIAL IVP SCH (22:36)
[2021-06-03 00:44] LABS: VBG HCO3 16 mEq/L (21-27); VBG PCO2 29 mmHg (41-51); VBG PH 7.35 pH Units (7.32-7.42); VBG PO2 190 mmHg (25-50)
[2021-06-03 00:46] LABS: Basophils % 0.6 %; Eosinophils # 0.1 K/mcL (0.0-0.6); Eosinophils % 1.3 %; Hematocrit 34.8 % (35.3-44.9); Immature Granulocytes % 0.3 % (0-4); Lymphocytes # 2.3 K/mcL (0.6-4.6); Lymphocytes % 33.9 %; Mean Corpuscular HGB Conc 32.8 g/dL (31.6-35.5); Mean Corpuscular Hemoglobin 29.5 pg (28.0-33.3); Mean Platelet Volume 10.1 fL (9.4-12.4); Monocytes # 0.6 K/mcL (0.0-1.3); Monocytes % 8.9 %; Neutrophils # 3.8 K/mcL (1.6-8.9); Platelet Count 283 K/mcL (140-400); Red Blood Count 3.86 M/mcL (3.82-4.97); Red Cell Distribution Width 12.7 % (11.5-14.5); White Blood Count 6.9 K/mcL (4.3-11.1)
[2021-06-03 00:48] LABS: Hemoglobin 11.4 g/dL (11.5-15.4); Mean Corpuscular Volume 90.2 fL (83.0-100.0)
[2021-06-03 01:00] LABS: BUN/Creatinine Ratio 11 (6-26); Blood Urea Nitrogen 10 mg/dL (6-20); Carbon Dioxide 15 mEq/L (23-29); Chloride 108 mEq/L (98-107); Glucose 161 mg/dL (70-105); Osmolality,Calculated 287 (280-300); Potassium 3.8 mEq/L (3.5-5.1); Sodium 137 mEq/L (136-145); eGFR For African Americans > 60 (> 60); eGFR For Non-African Americans > 60 (> 60)
[2021-06-03] MEDS: D5% in 0.45% NACL w KCl 20 MEQ/1,000 ML MLS IVC PRN (03:58)
[2021-06-03] MEDS ORDERED: *HR* Heparin 5,000 UNIT/ML VIAL SQ SCH (06:00)
[2021-06-03 06:57] LABS: BUN/Creatinine Ratio 12 (6-26); Blood Urea Nitrogen 9 mg/dL (6-20); Calcium 8.2 mg/dL (8.6-10.3); Carbon Dioxide 18 mEq/L (23-29); Chloride 112 mEq/L (98-107); Glucose 156 mg/dL (70-105); Osmolality,Calculated 290 (280-300); Potassium 3.7 mEq/L (3.5-5.1); Sodium 139 mEq/L (136-145); eGFR For African Americans > 60 (> 60); eGFR For Non-African Americans > 60 (> 60)
[2021-06-03 07:41] VITALS: TEMP 96.8
[2021-06-03] MEDS: 0.45 % Sodium Chloride w/KCl 20 MEQ/1,000 ML MLS IVC SCH ×12 (08:36→12:43)
[2021-06-03] MEDS ORDERED: Insulin DETEMIR 100 UNIT/ML X5UNITS SUBQ SCH (09:00)
[2021-06-03] MEDS ORDERED: NON-FORMULARY MEDICATION 1 EACH EACH (Insulin Glargine,Hum.Rec.Anlog [Lantus Solostar] 100 SQ SCH (09:00)
[2021-06-03] MEDS: Pantoprazole 40 MG VIAL IVP SCH (09:09)
[2021-06-03] MEDS ORDERED: Insulin LISPRO 300 UNITS/3 ML VIAL SUBQ SCH ×2 (11:30→21:00)
[2021-06-03 11:37] VITALS: BP 114/68
[2021-06-03 13:25] VITALS: PULSE 97; O2SAT 99
== END 2021-06-03 14:22 | disposition home or self-care (01) ==
LOC: 2NNU 15:38 → EMEROOARM 15:38 → SUATTDRO 17:56 → 2NNU 20:45
PROVIDERS: ADMIT Internal Medicine; ATTEND Student in an Organized Health Care Education/Training Program